=== PATIENT | male | born 1975 | race Caucasian/White ===

== ENCOUNTER → 2018-05-10 08:23 | Outpatient (CLI) | payer OTHER, SELFPAY ==
[2018-05-10 10:26] LABS: ALB/GLOB Ratio 1.3 RATIO (0.9-2.4); AST(SGOT) 23 U/L (15-37); Alanine Aminotransfer ALT/SGPT 39 U/L (16-61); Alkaline Phosphatase 65 U/L (45-117); Anion Gap 12 (5-15); BUN 19 mg/dL (7-18); BUN/Creat Ratio 15.6 RATIO (10-20); Calcium,Total 9.1 mg/dL (8.5-10.1); Chloride 104 mmol/L (98-107); Cholesterol 127 mg/dL (200); Creatinine, Serum 1.22 mg/dL (0.70-1.30); EST Glomerular Filtration Rate 69 mL/min (>60); Est Glom Filt Rate - Afr Amer 83 mL/min (>60); Globulin 3.1 g/dL (2.2-4.2); Glucose 84 mg/dL (74-106); High Density Lipoprotein 52 mg/dL; Potassium 4.6 mmol/L (3.5-5.1); Protein, Total 7.1 g/dL (6.4-8.2); Sodium Level 145 mmol/L (136-145); Triglycerides 48 mg/dL; Very Low Density Lipoprotein 10 mg/dL (5-40)
== END ==
PROVIDERS: Family Provider Family Medicine; PCP Family Medicine; Visit Provider Family Medicine
DX: Z52.4 Kidney donor (principal); E78.00 Pure hypercholesterolemia, unspecified
CPT/HCPCS: 36415; 80053; 80061

== ENCOUNTER → 2025-07-11 | Outpatient (CLI) | payer OTHER, SELFPAY ==
--- NOTE | 2025-07-11 07:18 | CT_ITS ---
PROCEDURE: LIMITED CHEST CT CARDIAC ONLY 07/11/2025 REASON FOR EXAM: CAD SCREENING Family history coronary artery disease. Elevated cholesterol level. TECHNIQUE: Procedure Code: [id number] Modality: CT Procedure: LIMITED CHEST CT CARDIAC ONLY One or more dose reduction techniques were used (e.g., Automated exposure control, adjustment of the mA and/or kV according to patient size, use of iterative reconstruction technique). RADIATION DOSE SUMMARY: CTDlvol: 12.19 mGy DLP: 195.04 mGycm COMPARISON: None. CT/Limited Chest CT Cardiac Only IMPRESSION: Limited imaging of the lungs demonstrates no acute process. No pleural effusion or pneumothorax is seen in visualized areas. No adenopathy is noted. The visualized upper abdomen demonstrates no significant abnormality. Reading Location: [id number]
--- NOTE | 2025-07-11 07:18 | CT_ITS ---
PROCEDURE: LIMITED CHEST CT CARDIAC ONLY 07/11/2025 REASON FOR EXAM: CAD SCREENING Family history coronary artery disease. Elevated cholesterol level. TECHNIQUE: Procedure Code: [id number] Modality: CT Procedure: LIMITED CHEST CT CARDIAC ONLY One or more dose reduction techniques were used (e.g., Automated exposure control, adjustment of the mA and/or kV according to patient size, use of iterative reconstruction technique). RADIATION DOSE SUMMARY: CTDlvol: 12.19 mGy DLP: 195.04 mGycm COMPARISON: None. CT/Limited Chest CT Cardiac Only IMPRESSION: Limited imaging of the lungs demonstrates no acute process. No pleural effusion or pneumothorax is seen in visualized areas. No adenopathy is noted. The visualized upper abdomen demonstrates no significant abnormality. Reading Location: [id number]
--- OUTSIDE RECORDS SUMMARY | 2025-07-11 07:29 | XMS RPT_ITS | CCD ---
Author Organization [facility] Inform ion Partnership [facility] Care Team Providers Care Snap Shearer Name Role Phone BREANNA RETREAD BUILDER - [employer] GRAZIER, GAB Mejia Primary Care Phys ician BREANNA RETREAD BUILDER [employer], GAB Mejia Attending U navailable BREANNA RET[employer] BUILDER [employer]IER, GAB Mejia Primary Care U navailable BREANNA [employer]DER [employer], GAB Mejia Attending U navailable BREANNA RETREAD BUILDER - [employer]IER, GAB Mejia Primary Care U navailable BREANNA RETREAD BUILDER - [employer], GAB Mejia Attending U navailable BREANNA RETREAD BUILDER - [employer]IER, GAB Mejia Primary Care U navailable BREANNA RETREAD BUILDER - [employer], GAB Mejia Primary Care U navailable BREANNA RETREAD BUILDER - [employer], GAB Mejia Attending U navailable [place] PROFESSOR OF PSYCHOLOGY, Gab Florence Referring Unav ailable Breanna PROFESSOR OF PSYCHOLOGY, Gab Florence Attending Unav ailable Breanna PROFESSOR OF PSYCHOLOGY, Gab Florence Primary Care Unav ailable Medications Current Medications Medication Drug Class(es) Dates Sig (Normalized) Sig (Original) ezetimibe 10 mg / simvastatin 20 mg oral tablet (8 sources) HMG-CoA Reductase Inhibitor, Dietary Cholesterol Absorption Inhibitor Start: 12-13-2024 End: 06-11-2025 take 1 tablet by mouth once daily ezetimibe-simvasta tin 10 mg-20 mg oral tablet Dose = 1 tab(s), Oral, qDay, # 90 tab(s), 1 Refill(s), Pharmacy: [facility], 176, cm, 12/13/24 6:58:00 EDT, Height, kg, 12/13/24 6:58:00 EDT, Dosing Weight Start Date: 12/13/24 Stop Date: 06/11/25 Status: Ordered Medication Dispense Status: Completed Quantity: 90.0 Unit: tab(s) Total Allowed Fills: 2 Fills Dispensed: 0 Start: 05-04-2023 End: 06-12-2024 take 1 tablet by mouth once daily ezetimibe-simvastatin 10 mg-20 mg oral tablet Dose = 1 tab(s), Oral, qDay, # 90 tab(s), 1 Refill(s), Pharmacy: [facility], 176, cm, 12/15/23 7:25:00 EDT, Height, kg, 12/15/23 7:25:00 EDT, Dosing Weight Start Date: 12/15/23 Stop Date: 06/12/24 Status: Ordered Start: 11-21-2021 End: 12-02-2022 take 1 tablet by mouth once daily ezetimibe-simvastatin 10 mg-20 mg oral tablet Dose = 1 tab(s), Oral, qDay, # 90 tab(s), 1 Refill(s), Pharmacy: [facility], 176, cm, 06/05/22 7:57:00 EDT, Height, kg, 06/05/22 7:57:00 EDT, Dosing Weight Start Date: 06/05/22 Stop Date: 12/02/22 Status: Ordered Start: 07-19-2020 take 1 tablet by delonte th once daily ezetimibe-simvastatin 10 mg-20 mg oral tablet See Instructions, TAKE 1 TABLET ONCE DAILY, # 90 tab(s), 3 Refill(s), Pharmacy: [facility], 175, cm, 07/03/20 8:08:00 EDT, Height, kg, 07/03/20 8:08:00 EDT, Dosing Weight Start Date: 07/19/20 Status: Ordered tadalafil 5 mg oral tablet (6 sources) Phosphodiesterase 5 Inhibitor Start: 12-13-2024 End: 06-11-2025 Cialis 5 mg oral tablet Dose : 5 mg = 1 tab(s), Oral, qDay, # 90 tab(s), 1 Refill(s), Pharmacy: [facility], Hypogonadism, male BPH without urinary obstruction, 176, cm, 12/13/24 6:58:00 EDT, Height, kg, 12/13/24 6:58:00 EDT, Dosing Weight Start Date: 12/13/24 Stop Date: 06/11/25 Status: Ordered Medication Dispense Status: Completed Quantity: 90.0 Unit: tab(s) Total Allowed Fills: 2 Fills Dispensed: 0 Indications: Benign prostatic hyperplasia without lower urinary tract symptoms; Testicular hypofunction; Start: 06-18-2023 End: 06-12-2024 Cialis 5 mg oral tablet Dose : 5 mg = 1 tab(s), Oral, qDay, # 90 tab(s), 1 Refill(s), Pharmacy: [facility], Hypogonadism, male BPH without urinary obstruction, 176, cm, 12/15/23 7:25:00 EDT, Height, kg, 12/15/23 7:25:00 EDT, Dosing Weight Start Date: 12/15/23 Stop Date: 06/12/24 Status: Ordered Start: 12-11-2022 End: 06-09-2023 Cialis 5 mg oral tablet Dose : 5 mg = 1 tab(s), Oral, qDay, # 90 tab(s), 1 Refill(s), Pharmacy: [facility], Hypogonadism, male BPH without urinary obstruction, 176, cm, 12/11/22 8:05:00 EDT, Height, kg, 12/11/22 8:05:00 EDT, Dosing Weight Start Date: 12/11/22 Stop Date: 06/09/23 Status: Ordered Start: 11-21-2021 End: 12-02-2022 Cialis 5 mg oral tablet Dose : 5 mg = 1 tab(s), Oral, qDay, # 90 tab(s), 1 Refill(s), Pharmacy: [facility], Hypogonadism, male BPH without urinary obstruction, 176, cm, 06/05/22 7:57:00 EDT, Height, kg, 06/05/22 7:57:00 EDT, Dosing Weight Start Date: 06/05/22 Stop Date: 12/02/22 Status: Ordered Completed/Discontinued Medications Medication Drug Class(es) Dates Sig (Normalized) Sig (Original) testosterone cypionate 100 mg/ml injectable solution (1 source) Androgen Start: 03-21-2025 End: 06-13-2025 inject 0.5 mL by subcutaneous injection every week testosterone cypionate 100 mg/mL intramuscular solution Dose : 50 mg = 0.5 mL, Subcutaneous, qWeek, Fill Date: 03/20/2025, # 10 mL, 2 Refill(s), Pharmacy: [facility], Hypogonadism, male Testosterone deficiency in male, 176, cm, 03/20/25 6:56:00 EDT, Height, 82.8, kg, 03/20/25 6:56:00 EDT, Dosing Weight Start Date: 03/21/25 Stop Date: 06/13/25 Status: Ordered Medication Dispense Status: Completed Quantity: 10.0 Unit: mL Total Allowed Fills: 3 Fills Dispensed: 0 Indications: Testicular hypofunction; Testicular hypofunction; Problems Problem Classification Problem Date Documented Da te Episodic/Chronic Chronic kidney disease (2 sources) Chronic kidney disease stage 3 12-15-2023 Chronic Chronic kidney disease (2 sources) Chronic kidney disease; Translations: [Chronic kidney disease, stage 3 unspecified] Onset: 12-08-2024 Disorders of lipid metabolism (16 sources) Hypercholesterolemi a; Translations: [Pure hypercholesterolemi a, unspecified] Onset: 06-11-2023 06-25-2020 Chronic Hyperplasia of prostate (6 sources) Benign prostatic hypertrophy without outflow obstruction 11-21-2021 Chronic Other aftercare (2 sources) Other fpc (current) drug therapy; Translations: [Other long winder tender (current) drug therapy] Onset: 06-06-2025 Episodic Other endocrine disorders (6 sources) Male hypogonadism 11-21-2021 Chronic Other endocrine disorders (2 sources) Testicular hypofunction; Translations: [Testicular hypofunction] Onset: 06-06-2025 Chronic Other screening for suspected conditions (not mental disorders or infectious disease) (7 sources) Encounter for screening for malignant neoplasm of prostate; Translations: [Encounter for screening for diabetes mellitus] Onset: 12-10-2023 Episodic Residual codes; unclassified (3 sources) Increased body mass index 06-18-2023 Episodic Unclassified (7 sources) Donor of kidney for transplant (person) 07-03-2020 Unclassified (20 sources) Patient encounter status 07-03-2020 Unclassified (4 sources) Non-smoker 12-11-2022 Results Test Name Value Interpretation Reference Range Facility TFTESTon 06-10-2025 Free Testost Direct 3.1 pg/mL Low 7.2-24.0 [facility] Comment on above: Result Comment: Perf ormed At: [facility] [address] [id number] Brian Omalley MD Ph:[phone] Performed At: [facility] [place] [address] [place], [place] [id number] Jagdish Zabala PhD Ph:[phone] Performed By: #### A 1C, ADIFF, GFR, LIPID, [id number], ANEU, [id number], CBC, 166136, CMP, TSH #### [address] [address] #### LH, FSH, PROL, E2 #### [facility] [address] [place] [address] Testosterone Lvl 285 ng/dL Normal 264-916 [facility] Comment on above: Result Comment: Adul t male reference interval is based on a population of healthy nonobese males (BMI <30) between 19 and 39 years old. johnathon Man.al. JCEM 2017,102;6391-4292. PMID: [id number]. Performed By: #### A 1C, ADIFF, GFR, LIPID, [id number], ANEU, [id number], CBC, 299430, CMP, TSH #### [address] [address] #### LH, FSH, PROL, E2 #### [address] [address] PSAFon 06-07-2025 % Free PSA 36.8 % Normal [facility] Comment on above: Result Comment: The table below lists the probability of prostate cancer for men with non-suspicious NADER results and total PSA between 4 and 10 ng/mL, by patient age (Ana et al, ELMA 1998, 279:1542). % Free PSA 50-64 yr 65-75 yr 0.00-10.00% 56% 55% 10.01-15.00% 24% 35% 15.01-20.00% 17% 23% 20.01-25.00% 10% 20% >25.00% 5% 9% Please note: Ana et al did not make specific recommendations regarding the use of percent free PSA for any other population of men. Performed At: [address] [id number] Jagdish Zabala PhD Ph:[phone] Performed By: #### A 1C, ADIFF, GFR, LIPID, [id number], ANEU, [id number], CBC, 8190926, CMP, TSH #### [place] [address] #### LH, FSH, PROL, E2 #### [place] [address] PSA Free 1.03 ng/mL Normal N/A [facility] Comment on above: Result Comment: Ayah AHUJA methodology. Performed By: #### A 1C, ADIFF, GFR, LIPID, [id number], ANEU, [id number], CBC, 8190926, CMP, TSH #### [place] [address] #### LH, FSH, PROL, E2 #### [place] [address] [id number] 06-07-2025 Sex Horm Bind Glob 39.7 nmol/L Normal 19.3-76.4 [facility] Comment on above: Result Comment: Perf ormed At: [address] [id number] Jagdish Zabala PhD Ph:[phone] Performed By: #### A 1C, ADIFF, GFR, LIPID, [id number], ANEU, 488954, CBC, 8190926, CMP, TSH #### [place] [address] #### LH, FSH, PROL, E2 #### [place] [address] Sex Horm Bind Glob 39.5 nmol/L Normal 19.3-76.4 [facility] Comment on above: Result Comment: Perf ormed At: [address] [id number] Jagdish Zabala PhD Ph:[phone] Performed By: #### A 1C, ADIFF, GFR, LIPID, [id number], ANEU, 768559, CBC, 8190926, CMP, TSH #### [address] [address] #### LH, FSH, PROL, E2 #### [address] [address] .Auto Diffon 06-06-2025 Basophil, Absolute 0.0 10 3/mcL Normal 0.0-0.3 [facility] Comment on above: Performed By: #### A 1C, ADIFF, GFR, LIPID, [id number], ANEU, [id number], CBC, 8190926, CMP, TSH #### [place] [address] #### LH, FSH, PROL, E2 #### [address] [address] Basophils/100 WBC (Bld) 0.4 % Normal 0.0-2.5 [facility] Comment on above: Performed By: #### A 1C, ADIFF, GFR, LIPID, [id number], ANEU, 557852, CBC, 8190926, CMP, TSH #### [address] [address] #### LH, FSH, PROL, E2 #### [address] [address] Eosinophil, Absolute 0.1 10 3/mcL Normal 0.0-0.7 [facility] Comment on above: Performed By: #### A 1C, ADIFF, GFR, LIPID, [id number], ANEU, 299468, CBC, 244610, CMP, TSH #### [address] [address] #### LH, FSH, PROL, E2 #### [address] [address] Eosinophils/100 WBC (Bld) 1.9 % Normal 0.0-6.0 [facility] Comment on above: Performed By: #### A 1C, ADIFF, GFR, LIPID, [id number], ANEU, 929565, CBC, 8190926, CMP, TSH #### [address] [address] #### LH, FSH, PROL, E2 #### [address] [address] Lymphocyte, Absolute 1.1 10 3/mcL Normal 0.9-4.3 [facility] Comment on above: Performed By: #### A 1C, ADIFF, GFR, LIPID, [id number], ANEU, 803768, CBC, 8190926, CMP, TSH #### [address] [address] #### LH, FSH, PROL, E2 #### [address] [address] Lymphocytes/100 WBC (Bld) 23.6 % Normal 20.0-40.0 [facility] Comment on above: Performed By: #### A 1C, ADIFF, GFR, LIPID, [id number], ANEU, 266928, CBC, 8190926, CMP, TSH #### [place] [address] #### LH, FSH, PROL, E2 #### [address] [address] Monocyte, Absolute 0.6 10 3/mcL Normal 0.1-1.4 [facility] Comment on above: Performed By: #### A 1C, ADIFF, GFR, LIPID, [id number], ANEU, 465600, CBC, 8190926, CMP, TSH #### [place] [address] #### LH, FSH, PROL, E2 #### [address] [address] Monocytes/100 WBC (Bld) 12.4 % Normal 2.0-13.0 [facility] Comment on above: Performed By: #### A 1C, ADIFF, GFR, LIPID, [id number], ANEU, 784526, CBC, 8190926, CMP, TSH #### [place] [address] #### LH, FSH, PROL, E2 #### [address] [address] Neutrophils/100 WBC (Bld) 61.7 % Normal 50.0-75.0 [facility] Comment on above: Performed By: #### A 1C, ADIFF, GFR, LIPID, [id number], ANEU, 300229, CBC, 422466, CMP, TSH #### [address] [address] #### LH, FSH, PROL, E2 #### [address] [address] .GFRon 06-06-2025 Estimated Glomerular Filtration Rate 82 ml/min/1.73sqm Normal [facility] Comment on above: Result Comment: Stages of Chronic Kidney Disease (CKD) Stage Description eGFR(ml/min/1.73 sq.m.) CKD 1 Normal kidney function or >=90 normal kindney function with possible kidney damage (ex. Proteinuria) CKD 2 Kidney damage with mild loss 60-89 of kidney function CKD 3a Mild to moderate loss of kidney 45-59 function CKD 3b Moderate to severe loss of 30-44 of kindey function CKD 4 Severe loss of kidney function 15-29 CKD 5 Kidney failure <15 Note: (go live 2024) the eGFR calculation was updated to the 2020 CKD-EPI creatinine equation without a race factor to calculate the eGFR results. Performed By: #### A 1C, ADIFF, GFR, LIPID, [id number], ANEU, 229188, CBC, 8190926, CMP, TSH #### [address] [address] #### LH, FSH, PROL, E2 #### [address] [address] .NEUABSon 06-06-2025 Neutrophil, Absolute 3.0 10 3/mcL Normal 2.3-8.1 [facility] Comment on above: Performed By: #### A 1C, ADIFF, GFR, LIPID, [id number], ANEU, 634570, CBC, 191870, CMP, TSH #### [address] [address] #### LH, FSH, PROL, E2 #### [address] [address] A1Con 06-06-2025 Glucose [Mass/Vol] 111 mg/dL Normal [facility] Comment on above: Result Comment: Alexandra mated Average Glucose calculated by equation ((28.7xA1C)-46.7) Estimated average glucose (eAG) is a calculated value from Hemoglobin A1C and is career services representative of the average blood glucose level in the last 2-3 month period. Normal range: less than 114 mg/dL Performed By: #### A 1C, ADIFF, GFR, LIPID, [id number], ANEU, 858967, CBC, 763920, CMP, TSH #### [place] [address] #### LH, FSH, PROL, E2 #### [place] [address] HbA1c (Bld) [Mass fraction] 5.5 % Normal 4.3-6.4 [facility] Comment on above: Performed By: #### A 1C, ADIFF, GFR, LIPID, [id number], ANEU, 461050, CBC, 944114, CMP, TSH #### [place] [address] #### LH, FSH, PROL, E2 #### [place] [id number] CBCon 06-06-2025 Erythrocyte distribution width (RBC) [Ratio] 13.0 % Normal 11.5-15.5 [facility] Comment on above: Performed By: #### A 1C, ADIFF, GFR, LIPID, [id number], ANEU, 395376, CBC, 332670, CMP, TSH #### [address] [address] #### LH, FSH, PROL, E2 #### [place] [address] Hematocrit (Bld) [Volume fraction] 46.7 % Normal 40.0-52.0 [facility] Comment on above: Performed By: #### A 1C, ADIFF, GFR, LIPID, [id number], ANEU, 711141, CBC, 8190926, CMP, TSH #### [place] [address] #### LH, FSH, PROL, E2 #### [place] [address] Hgb 16.1 G/dL Normal 13.0-17.5 [facility] Comment on above: Performed By: #### A 1C, ADIFF, GFR, LIPID, [id number], ANEU, 814550, CBC, 8190926, CMP, TSH #### [place] [address] #### LH, FSH, PROL, E2 #### [place] [address] MCH (RBC) [Entitic mass] 29.7 pg Normal 27.0-33.0 [facility] Comment on above: Performed By: #### A 1C, ADIFF, GFR, LIPID, [id number], ANEU, 615876, CBC, 8190926, CMP, TSH #### [place] [address] #### LH, FSH, PROL, E2 #### [place] [address] MCHC 34.4 G/dL Normal 32.0-36.0 [facility] Comment on above: Performed By: #### A 1C, ADIFF, GFR, LIPID, [id number], ANEU, 137642, CBC, 8190926, CMP, TSH #### [place] [address] #### LH, FSH, PROL, E2 #### [place] [address] MCV (RBC) [Entitic vol] 86.3 fL Normal 81.0-100.0 [facility] Comment on above: Performed By: #### A 1C, ADIFF, GFR, LIPID, [id number], ANEU, 203637, CBC, 8190926, CMP, TSH #### [place] [address] #### LH, FSH, PROL, E2 #### [address] [address] Platelet 158 10 3/mcL Normal 150-450 [facility] Comment on above: Performed By: #### A 1C, ADIFF, GFR, LIPID, [id number], ANEU, 334670, CBC, 8190926, CMP, TSH #### [address] [address] #### LH, FSH, PROL, E2 #### [place] [address] Platelet mean volume (Bld) [Entitic vol] 9.6 fL Normal 6.4-10.5 [facility] Comment on above: Performed By: #### A 1C, ADIFF, GFR, LIPID, [id number], ANEU, 305322, CBC, 8190926, CMP, TSH #### [address] [address] #### LH, FSH, PROL, E2 #### [place] [address] RBC 5.42 10 6/mcL Normal 4.50-6.00 [facility] Comment on above: Performed By: #### A 1C, ADIFF, GFR, LIPID, [id number], ANEU, 371379, CBC, 8190926, CMP, TSH #### [address] [address] #### LH, FSH, PROL, E2 #### [place] [address] WBC 4.8 10 3/mcL Normal 4.5-10.8 [facility] Comment on above: Performed By: #### A 1C, ADIFF, GFR, LIPID, [id number], ANEU, 266190, CBC, 8190926, CMP, TSH #### [address] [address] #### LH, FSH, PROL, E2 #### [place] [address] CMPon 06-06-2025 Albumin Level 4.2 G/dL Normal 3.5-5.0 [facility] Comment on above: Performed By: #### A 1C, ADIFF, GFR, LIPID, [id number], ANEU, 891446, CBC, 904544, CMP, TSH #### [address] [address] #### LH, FSH, PROL, E2 #### [address] [address] Albumin/Globulin [Mass ratio] 1.4 {ratio} Normal 1.1-2.5 [facility] Comment on above: Performed By: #### A 1C, ADIFF, GFR, LIPID, [id number], ANEU, 316545, CBC, 255020, CMP, TSH #### [address] [address] #### LH, FSH, PROL, E2 #### [address] [address] ALP [Catalytic activity/Vol] 65 U/L Normal 40-135 [facility] Comment on above: Performed By: #### A 1C, ADIFF, GFR, LIPID, [id number], ANEU, 026832, CBC, 389293, CMP, TSH #### [address] [address] #### LH, FSH, PROL, E2 #### [address] [address] ALT [Catalytic activity/Vol] 32 U/L Normal 16-63 [facility] Comment on above: Performed By: #### A 1C, ADIFF, GFR, LIPID, [id number], ANEU, 303057, CBC, 075125, CMP, TSH #### [address] [address] #### LH, FSH, PROL, E2 #### [address] [address] AST [Catalytic activity/Vol] 23 U/L Normal 10-40 [facility] Comment on above: Performed By: #### A 1C, ADIFF, GFR, LIPID, [id number], ANEU, 865100, CBC, 478045, CMP, TSH #### [place] [address] #### LH, FSH, PROL, E2 #### [address] [address] Bili Total 0.9 mg/dL Normal 0.2-1.0 [facility] Comment on above: Result Comment: Use of this assay is not recommended for patients undergoing treatment with eltrombopag due to the potential for falsely elevated results. Performed By: #### A 1C, ADIFF, GFR, LIPID, [id number], ANEU, 154312, CBC, 296110, CMP, TSH #### [place] [address] #### LH, FSH, PROL, E2 #### [place] [address] BUN/Creatinine Ratio 17 ratio Normal 7-27 [facility] Comment on above: Performed By: #### A 1C, ADIFF, GFR, LIPID, [id number], ANEU, 532533, CBC, 8190926, CMP, TSH #### [place] [address] #### LH, FSH, PROL, E2 #### [address] [address] Calcium [Mass/Vol] 9.5 mg/dL Normal 8.4-10.2 [facility] Comment on above: Performed By: #### A 1C, ADIFF, GFR, LIPID, [id number], ANEU, 671008, CBC, 8190926, CMP, TSH #### [place] [address] #### LH, FSH, PROL, E2 #### [address] [address] Chloride [Moles/Vol] 103 mmol/L Normal 98-107 [facility] Comment on above: Performed By: #### A 1C, ADIFF, GFR, LIPID, [id number], ANEU, 184201, CBC, 738105, CMP, TSH #### [place] [address] #### LH, FSH, PROL, E2 #### [address] [address] CO2 [Moles/Vol] 29 mmol/L Normal 22-29 [facility] Comment on above: Performed By: #### A 1C, ADIFF, GFR, LIPID, [id number], ANEU, 342451, CBC, 298499, CMP, TSH #### [address] [address] #### LH, FSH, PROL, E2 #### [address] [address] Creatinine [Mass/Vol] 1.10 mg/dL Normal 0.67-1.17 [facility] Comment on above: Performed By: #### A 1C, ADIFF, GFR, LIPID, [id number], ANEU, 502727, CBC, 8190926, CMP, TSH #### [address] [address] #### LH, FSH, PROL, E2 #### [address] [address] Electrolyte Balance 8.0 mEq/L Normal 4.0-15.0 [facility] Comment on above: Performed By: #### A 1C, ADIFF, GFR, LIPID, [id number], ANEU, 869076, CBC, 8190926, CMP, TSH #### [address] [address] #### LH, FSH, PROL, E2 #### [address] [address] Globulin 3.1 G/dL Normal 2.7-4.4 [facility] Comment on above: Performed By: #### A 1C, ADIFF, GFR, LIPID, [id number], ANEU, 825903, CBC, 8190926, CMP, TSH #### [address] [address] #### LH, FSH, PROL, E2 #### [address] [address] Glucose [Mass/Vol] 86 mg/dL Normal 70-105 [facility] Comment on above: Performed By: #### A 1C, ADIFF, GFR, LIPID, [id number], ANEU, 469964, CBC, 610697, CMP, TSH #### [address] [address] #### LH, FSH, PROL, E2 #### [address] [address] Potassium [Moles/Vol] 4.2 mmol/L Normal 3.5-5.1 [facility] Comment on above: Performed By: #### A 1C, ADIFF, GFR, LIPID, [id number], ANEU, 680325, CBC, 588191, CMP, TSH #### [address] [address] #### LH, FSH, PROL, E2 #### [address] [address] Sodium [Moles/Vol] 140 mmol/L Normal 136-145 [facility] Comment on above: Performed By: #### A 1C, ADIFF, GFR, LIPID, [id number], ANEU, 739436, CBC, 186876, CMP, TSH #### [address] [address] #### LH, FSH, PROL, E2 #### [address] [address] Total Protein 7.3 G/dL Normal 6.4-8.2 [facility] Comment on above: Performed By: #### A 1C, ADIFF, GFR, LIPID, [id number], ANEU, 027266, CBC, 515805, CMP, TSH #### [address] [address] #### LH, FSH, PROL, E2 #### [address] [address] Urea nitrogen [Mass/Vol] 19 mg/dL High 7-18 [facility] Comment on above: Performed By: #### A 1C, ADIFF, GFR, LIPID, [id number], ANEU, 992691, CBC, 132389, CMP, TSH #### [address] [address] #### LH, FSH, PROL, E2 #### [place] [id number] E2on 06-06-2025 Estradiol Level 23.08 pg/mL Normal 0.00-39.80 [facility] Comment on above: Result Comment: Adult Female E2 Reference Ranges: Follicular phase 19.5 - 144.2 pg/mL Midcycle 63.9 - 356.7 pg/mL Luteal phase 55.8 - 214.2 pg/mL Post menopausal 0 - 33.2 pg/mL Performed By: #### A 1C, ADIFF, GFR, LIPID, [id number], ANEU, 758758, CBC, 257372, CMP, TSH #### [place] [address] #### LH, FSH, PROL, E2 #### [place] [address] FSHon 06-06-2025 FSH 0.4 mIU/mL Low 1.4-18.1 [facility] Comment on above: Result Comment: Adul t Female FSH Reference Ranges (08/14/99): Follicular phase 2.5 - 10.2 mIU/mL Midcycle phase 3.4 - 33.4 mIU/mL Luteal phase 1.5 - 9.1 mIU/mL Post menopausal 23.0 -116.3 mIU/mL Adult Male: 1.4 - 18.1 mIU/mL Performed By: #### A 1C, ADIFF, GFR, LIPID, [id number], ANEU, 747175, CBC, 558939, CMP, TSH #### [place] [id number] #### LH, FSH, PROL, E2 #### [place] [id number] LABORATORYOrdered By: LABCOR P CONTRIBUTOR_SYSTEM on 06-06-2025 % Free PSA (LC) 36.8 % Invalid Interpretation Code AO Sendouts SS Comment on above: Result Comment: The table below lists the probability of prostate cancer for men with non-suspicious NADER results and total PSA between 4 and 10 ng/mL, by patient age (Ana et al, ELMA 1998, 279:1542). % Free PSA 50-64 yr 65-75 yr 0.00-10.00% 56% 55% 10.01-15.00% 24% 35% 15.01-20.00% 17% 23% 20.01-25.00% 10% 20% >25.00% 5% 9% Please note: Ana et al did not make specific recommendations regarding the use of percent free PSA for any other population of men. Performed At: [address] [id number] Jagdish Zabala PhD Ph:[phone] Free Testost Direct (LC) 3.1 pg/mL Low 7.2-24.0 AO Sendouts SS Comment on above: Result Comment: Perf ormed At: [address] [id number] Brian Omalley MD Ph:[phone] Performed At: [address] [id number] Jagdish Zabala PhD Ph:[phone] PSA (LC) 2.8 ng/mL Invalid Interpretation Code 0.0-4.0 AO Sendouts SS Comment on above: Result Comment: Roch e ECLIA methodology. According to the [employer], Serum PSA should decrease and remain at undetectable levels after radical prostatectomy. The AUA defines biochemical recurrence as an initial PSA value 0.2 ng/mL or greater followed by a subsequent confirmatory PSA value 0.2 ng/mL or greater. Values obtained with different assay methods or kits cannot be used interchangeably. Results cannot be interpreted as absolute evidence of the presence or absence of malignant disease. PSA Free (LC) 1.03 ng/mL Invalid Interpretation Code N/A AO Sendouts SS Comment on above: Result Comment: Roch e ECLIA methodology. Sex Horm Bind Glob (LC) 39.7 nmol/L Invalid Interpretation Code 19.3-76.4 AO Sendouts SS Comment on above: Result Comment: Perf ormed At: [address] [id number] Jagdish Zabala PhD Ph:[phone] Sex Horm Bind Glob (LC) 39.5 nmol/L Invalid Interpretation Code 19.3-76.4 AO Sendouts SS Comment on above: Result Comment: Perf ormed At: [facility] [place] [address], [place] [id number] Jagdish Zabala PhD Ph:[phone] Testosterone Lvl (LC) 285 ng/dL Invalid Interpretation Code 264-021 AO Sendouts SS Comment on above: Result Comment: Adul t male reference interval is based on a population of healthy nonobese males (BMI <30) between 19 and 39 years old. Donovan et.al. JCEM 2017,102;3470-5476. PMID: [id number]. LABORATORYOrdered By: SYSTEM SYSTEM on 06-06-2025 Albumin BCP dye [Mass/Vol] 4.2 G/dL Normal 3.5 - 5.0 G/dL AO ADM SS Albumin/Globulin [Mass ratio] 1.4 {ratio} Normal 1.1 - 2.5 ratio AO ADM SS ALP [Catalytic activity/Vol] 65 U/L Normal 40 - 135 U/L AO ADM SS ALT With P-5'-P [Catalytic activity/Vol] 32 U/L Normal 16 - 63 U/L AO ADM SS AST With P-5'-P [Catalytic activity/Vol] 23 U/L Normal 10 - 40 U/L AO ADM SS Basophils (Bld) [#/Vol] 0.0 103/mcL Normal 0.0 - 0.3 10^3/mcL AO Workflow SS Basophils/100 WBC (Bld) 0.4 % Normal 0.0 - 2.5 % AO Workflow SS Bilirubin [Mass/Vol] 0.9 mg/dL Normal 0.2 - 1 .0 mg/dL AO ADM SS Comment on above: Interpretive Data: U se of this assay is not recommended for patients undergoing treatment with eltrombopag due to the potential for falsely elevated results. Calcium [Mass/Vol] 9.5 mg/dL Normal 8.4 - 10. 2 mg/dL AO ADM SS Chloride [Moles/Vol] 103 mmol/L Normal 98 - 10 7 mmol/L AO ADM SS CO2 [Moles/Vol] 29 mmol/L Normal 22 - 29 mmol/L AO ADM SS Creatinine [Mass/Vol] 1.10 mg/dL Normal 0.67 - 1.17 mg/dL AO ADM SS E2 [Mass/Vol] 23.08 pg/mL Normal 0.00 - 39.80 pg/mL AH ADM SS Comment on above: Interpretive Data: Adult Female E2 Reference Ranges: Follicular phase 19.5 - 144.2 pg/mL Midcycle 63.9 - 356.7 pg/mL Luteal phase 55.8 - 214.2 pg/mL Post menopausal 0 - 33.2 pg/mL Electrolyte Balance 8.0 mEq/L Normal 4.0 - 15 .0 mEq/L AO ADM SS Eosinophil, Absolute 0.1 103/mcL Normal 0.0 - 0 .7 10^3/mcL AO Workflow SS Eosinophils/100 WBC (Bld) 1.9 % Normal 0.0 - 6.0 % AO Workflow SS Erythrocyte distribution width (RBC) [Ratio] 13.0 % Normal 11.5 - 15.5 % AO Workflow SS Estimated Glomerular Filtration Rate 82 ml/min/1.73sqm Invalid Interpretation Code AO Chemistry S Comment on above: Interpretive Data: Stages of Chronic Kidney Disease (CKD) Stage Description eGFR(ml/min/1.73 sq.m.) CKD 1 Normal kidney function or >=90 normal kindney function with possible kidney damage (ex. Proteinuria) CKD 2 Kidney damage with mild loss 60-89 of kidney function CKD 3a Mild to moderate loss of kidney 45-59 function CKD 3b Moderate to severe loss of 30-44 of kindey function CKD 4 Severe loss of kidney function 15-29 CKD 5 Kidney failure <15 Note: (go live 2024) the eGFR calculation was updated to the 2020 CKD-EPI creatinine equation without a race factor to calculate the eGFR results. Follitropin Qn 0.4 m[IU]/mL Low 1.4 - 18.1 mIU/mL ADM SS Comment on above: Interpretive Data: A dult Female FSH Reference Ranges (08/14/99): Follicular phase 2.5 - 10.2 mIU/mL Midcycle phase 3.4 - 33.4 mIU/mL Luteal phase 1.5 - 9.1 mIU/mL Post menopausal 23.0 -116.3 mIU/mL Adult Male: 1.4 - 18.1 mIU/mL Globulin 3.1 G/dL Normal 2.7 - 4.4 G/dL AO ADM SS Glucose [Mass/Vol] 111 mg/dL Invalid Interpretation Code AO Chemistry S Comment on above: Interpretive Data: E stimated average glucose (eAG) is a calculated value from Hemoglobin A1C and is career services representative of the average blood glucose level in the last 2-3 month period. Normal range: less than 114 mg/dL Glucose [Mass/Vol] 86 mg/dL Normal 70 - 105 mg/dL AO ADM SS HbA1c (Bld) [Mass fraction] 5.5 % Normal 4.3 - 6.4 % AO ADM SS Hematocrit (Bld) [Volume fraction] 46.7 % Normal 40.0 - 52.0 % AO Workflow SS Hemoglobin (Bld) [Mass/Vol] 16.1 G/dL Normal 13.0 - 17.5 G/dL AO Workflow SS Lutropin Qn mIU/mL Low 1.5 - 9.3 mIU/mL AH ADM SS Comment on above: Interpretive Data: * *Note - New Reference Range in effect 20Adult Female LH Reference Ranges: Follicular phase 1.9 - 12.5 mIU/mL Midcycle phase 8.7 - 76.3 mIU/mL Luteal phase 0.5 - 16.9 mIU/mL Post menopausal 5.0 - 55.2 mIU/mL Lymphocytes (Bld) [#/Vol] 1.1 103/mcL Normal 0.9 - 4.3 10^3/mcL AO Workflow SS Lymphocytes/100 WBC (Bld) 23.6 % Normal 20.0 - 40.0 % AO Workflow SS MCH (RBC) [Entitic mass] 29.7 pg Normal 27.0 - 33.0 pg AO Workflow SS MCHC 34.4 G/dL Normal 32.0 - 36.0 G/dL AO Workflow SS MCV (RBC) [Entitic vol] 86.3 fL Normal 81.0 - 100.0 fL AO Workflow SS Monocytes (Bld) [#/Vol] 0.6 103/mcL Normal 0.1 - 1.4 10^3/mcL AO Workflow SS Monocytes/100 WBC (Bld) 12.4 % Normal 2.0 - 13.0 % AO Workflow SS Neutrophils (Bld) [#/Vol] 3.0 103/mcL Normal 2.3 - 8.1 10^3/mcL AO Workflow SS Neutrophils/100 WBC (Bld) 61.7 % Normal 50.0 - 75.0 % AO Workflow SS Platelet mean volume (Bld) [Entitic vol] 9.6 fL Normal 6.4 - 10.5 fL AO Workflow SS Platelets (Bld) [#/Vol] 158 103/mcL Normal 150 - 450 10^3/mcL AO Workflow SS Potassium [Moles/Vol] 4.2 mmol/L Normal 3.5 - 5.1 mmol/L AO ADM SS Prolactin [Mass/Vol] 4.6 ng/mL Normal 2.0 - 1 8.0 ng/mL AH ADM SS Protein [Mass/Vol] 7.3 G/dL Normal 6.4 - 8.2 G/dL AO ADM SS RBC (Bld) [#/Vol] 5.42 106/mcL Normal 4.50 - 6.0 0 10^6/mcL AO Workflow SS Sodium [Moles/Vol] 140 mmol/L Normal 136 - 145 mmol/L AO ADM SS TSH Qn 1.08 m[IU]/L Normal 0.36 - 3.74 mcIU/mL AO ADM SS Urea nitrogen [Mass/Vol] 19 mg/dL High 7 - 18 mg/dL AO ADM SS Urea nitrogen/Creatinine [Mass ratio] 17 ratio Normal 7 - 27 ratio AO ADM SS WBC (Bld) [#/Vol] 4.8 103/mcL Normal 4.5 - 10.8 10^3/mcL AO Workflow SS LABORATORYOrdered By: Ivett Hamm on 06-06-2025 Cholesterol [Mass/Vol] 210 mg/dL High 0 - 200 mg/dL AO ADM SS Comment on above: Interpretive Data: C holesterol Reference Interval: Less than 200 Desirable 200-239 Borderline high risk 240 and above High risk Cholesterol in HDL [Mass/Vol] 42 mg/dL Normal 40 - 60 mg/dL AO ADM SS Cholesterol in LDL [Mass/Vol] 151 mg/dL High 0 - 130 mg/dL AO ADM SS Triglyceride [Mass/Vol] 85 mg/dL Normal 0 - 150 mg/dL AO ADM SS Comment on above: Interpretive Data: T riglyceride Reference Interval: Less than 150 Normal 150-199 Borderline high risk 200-499 High risk 500 or higher Very high risk LHon 06-06-2025 LH <0.1 Low 1.5-9.3 [facility] Comment on above: Result Comment: No te - New Reference Range in effect 20Adult Female LH Reference Ranges: Follicular phase 1.9 - 12.5 mIU/mL Midcycle phase 8.7 - 76.3 mIU/mL Luteal phase 0.5 - 16.9 mIU/mL Post menopausal 5.0 - 55.2 mIU/mL Performed By: #### A 1C, ADIFF, GFR, LIPID, [id number], ANEU, [id number], CBC, 263778, CMP, TSH #### [address] [address] #### LH, FSH, PROL, E2 #### [address] [address] LIPIDon 06-06-2025 Cholesterol [Mass/Vol] 210 mg/dL High 0-200 [facility] Comment on above: Result Comment: Chol esterol Reference Interval: Less than 200 Desirable 200-239 Borderline high risk 240 and above High risk Performed By: #### A 1C, ADIFF, GFR, LIPID, [id number], ANEU, [id number], CBC, [id number], CMP, TSH #### [place] [address] #### LH, FSH, PROL, E2 #### [address] [address] Cholesterol in HDL [Mass/Vol] 42 mg/dL Normal 40-60 [facility] Comment on above: Performed By: #### A 1C, ADIFF, GFR, LIPID, [id number], ANEU, [id number], CBC, 055777, CMP, TSH #### [address] [address] #### LH, FSH, PROL, E2 #### [address] [address] Cholesterol in LDL [Mass/Vol] 151 mg/dL High 0-130 [facility] Comment on above: Performed By: #### A 1C, ADIFF, GFR, LIPID, [id number], ANEU, 709392, CBC, 415224, CMP, TSH #### [address] [address] #### LH, FSH, PROL, E2 #### [address] [address] Triglyceride [Mass/Vol] 85 mg/dL Normal 0-150 [facility] Comment on above: Result Comment: Trig lyceride Reference Interval: Less than 150 Normal 150-199 Borderline high risk 200-499 High risk 500 or higher Very high risk Performed By: #### A 1C, ADIFF, GFR, LIPID, [id number], ANEU, [id number], CBC, 506720, CMP, TSH #### [address] [address] #### LH, FSH, PROL, E2 #### [address] [address] PROLon 06-06-2025 Prolactin 4.6 ng/mL Normal 2.0-18.0 [facility] Comment on above: Performed By: #### A 1C, ADIFF, GFR, LIPID, [id number], ANEU, [id number], CBC, 260166, CMP, TSH #### [address] [address] #### LH, FSH, PROL, E2 #### [address] [address] TSHon 06-06-2025 TSH Qn 1.08 m[IU]/L Normal 0.36-3.74 [facility] Comment on above: Performed By: #### A 1C, ADIFF, GFR, LIPID, [id number], ANEU, [id number], CBC, 103266, CMP, TSH #### [address] [address] #### LH, FSH, PROL, E2 #### [address] [address] TFTESTon 12-14-2024 Free Testost Direct 6.7 pg/mL Low 7.2-24.0 [facility] Comment on above: Result Comment: Perf ormed At: [facility] [address] [id number] Brian Omalley MD Ph:[phone] Performed At: [facility] [address] [id number] Jagdish Zabala PhD Ph:[phone] Performed By: #### A 1C, ADIFF, GFR, LIPID, [id number], ANEU, [id number], CBC, 8190926, CMP, TSH #### [place] [address] #### LH, FSH, PROL, E2 #### [place] [address] Testosterone Lvl 560 ng/dL Normal 264-916 [facility] Comment on above: Result Comment: Adul t male reference interval is based on a population of healthy nonobese males (BMI <30) between 19 and 39 years old. johnathon Man.al. JCEM 2017,102;8480-9423. PMID: [id number]. Performed By: #### A 1C, ADIFF, GFR, LIPID, [id number], ANEU, [id number], CBC, 8190926, CMP, TSH #### [place] [address] #### LH, FSH, PROL, E2 #### [place] [address] [id number] 12-09-2024 Sex Horm Bind Glob 42.2 nmol/L Normal 19.3-76.4 [facility] Comment on above: Result Comment: Perf ormed At: [facility] [address] [id number] Jagdish Zabala PhD Ph:[phone] Performed By: #### A 1C, ADIFF, GFR, LIPID, [id number], ANEU, [id number], CBC, 8190926, CMP, TSH #### [place] [address] #### LH, FSH, PROL, E2 #### [place] [address] .GFRon 12-08-2024 Estimated Glomerular Filtration Rate 74 ml/min/1.73sqm Normal [facility] Comment on above: Result Comment: Stages of Chronic Kidney Disease (CKD) Stage Description eGFR(ml/min/1.73 sq.m.) CKD 1 Normal kidney function or >=90 normal kindney function with possible kidney damage (ex. Proteinuria) CKD 2 Kidney damage with mild loss 60-89 of kidney function CKD 3a Mild to moderate loss of kidney 45-59 function CKD 3b Moderate to severe loss of 30-44 of kindey function CKD 4 Severe loss of kidney function 15-29 CKD 5 Kidney failure <15 Note: (go live 2024) the eGFR calculation was updated to the 2020 CKD-EPI creatinine equation without a race factor to calculate the eGFR results. Performed By: #### A 1C, ADIFF, GFR, LIPID, [id number], ANEU, [id number], CBC, 8190926, CMP, TSH #### [place] [address] #### LH, FSH, PROL, E2 #### [address] [address] CMPon 12-08-2024 Albumin Level 4.7 G/dL Normal 3.5-5.0 [facility] Comment on above: Performed By: #### A 1C, ADIFF, GFR, LIPID, [id number], ANEU, [id number], CBC, 8190926, CMP, TSH #### [place] [address] #### LH, FSH, PROL, E2 #### [address] [address] Albumin/Globulin [Mass ratio] 1.7 {ratio} Normal 1.1-2.5 [facility] Comment on above: Performed By: #### A 1C, ADIFF, GFR, LIPID, [id number], ANEU, 825300, CBC, 8190926, CMP, TSH #### [place] [address] #### LH, FSH, PROL, E2 #### [address] [address] ALP [Catalytic activity/Vol] 65 U/L Normal 40-135 [facility] Comment on above: Performed By: #### A 1C, ADIFF, GFR, LIPID, [id number], ANEU, 869633, CBC, 8190926, CMP, TSH #### [place] [address] #### LH, FSH, PROL, E2 #### [address] [address] ALT [Catalytic activity/Vol] 42 U/L Normal 16-63 [facility] Comment on above: Performed By: #### A 1C, ADIFF, GFR, LIPID, [id number], ANEU, 003450, CBC, 8190926, CMP, TSH #### [address] [address] #### LH, FSH, PROL, E2 #### [address] [address] AST [Catalytic activity/Vol] 27 U/L Normal 10-40 [facility] Comment on above: Performed By: #### A 1C, ADIFF, GFR, LIPID, [id number], ANEU, 089111, CBC, 8190926, CMP, TSH #### [address] [address] #### LH, FSH, PROL, E2 #### [place] [address] Bili Total 0.8 mg/dL Normal 0.2-1.0 [facility] Comment on above: Result Comment: Use of this assay is not recommended for patients undergoing treatment with eltrombopag due to the potential for falsely elevated results. Performed By: #### A 1C, ADIFF, GFR, LIPID, [id number], ANEU, 818062, CBC, 8190926, CMP, TSH #### [place] [address] #### LH, FSH, PROL, E2 #### [address] [address] BUN/Creatinine Ratio 18 ratio Normal 7-27 [facility] Comment on above: Performed By: #### A 1C, ADIFF, GFR, LIPID, [id number], ANEU, 001117, CBC, 8190926, CMP, TSH #### [address] [address] #### LH, FSH, PROL, E2 #### [place] [address] Calcium [Mass/Vol] 9.9 mg/dL Normal 8.4-10.2 [facility] Comment on above: Performed By: #### A 1C, ADIFF, GFR, LIPID, [id number], ANEU, 296356, CBC, 8190926, CMP, TSH #### [address] [address] #### LH, FSH, PROL, E2 #### [address] [address] Chloride [Moles/Vol] 104 mmol/L Normal 98-107 [facility] Comment on above: Performed By: #### A 1C, ADIFF, GFR, LIPID, [id number], ANEU, 898464, CBC, 8190926, CMP, TSH #### [address] [address] #### LH, FSH, PROL, E2 #### [address] [address] CO2 [Moles/Vol] 29 mmol/L Normal 22-29 [facility] Comment on above: Performed By: #### A 1C, ADIFF, GFR, LIPID, [id number], ANEU, 760969, CBC, 8190926, CMP, TSH #### [address] [address] #### LH, FSH, PROL, E2 #### [address] [address] Creatinine [Mass/Vol] 1.20 mg/dL Normal 0.70-1.30 [facility] Comment on above: Result Comment: Test ing performed on Siemens Dimension EXL analyzer using a modified kinetic Bhargavi technique. Performed By: #### A 1C, ADIFF, GFR, LIPID, [id number], ANEU, 763584, CBC, 273723, CMP, TSH #### [address] [address] #### LH, FSH, PROL, E2 #### [address] [address] Electrolyte Balance 7.0 mEq/L Normal 4.0-15.0 [facility] Comment on above: Performed By: #### A 1C, ADIFF, GFR, LIPID, [id number], ANEU, 275407, CBC, 606008, CMP, TSH #### [address] [address] #### LH, FSH, PROL, E2 #### [address] [address] Globulin 2.8 G/dL Normal 1.5-3.8 [facility] Comment on above: Performed By: #### A 1C, ADIFF, GFR, LIPID, [id number], ANEU, 148856, CBC, 8190926, CMP, TSH #### [place] [address] #### LH, FSH, PROL, E2 #### [address] [address] Glucose [Mass/Vol] 84 mg/dL Normal 70-105 [facility] Comment on above: Performed By: #### A 1C, ADIFF, GFR, LIPID, [id number], ANEU, 460182, CBC, 8190926, CMP, TSH #### [address] [address] #### LH, FSH, PROL, E2 #### [address] [address] Potassium [Moles/Vol] 4.6 mmol/L Normal 3.5-5.1 [facility] Comment on above: Performed By: #### A 1C, ADIFF, GFR, LIPID, [id number], ANEU, 032425, CBC, 8190926, CMP, TSH #### [address] [address] #### LH, FSH, PROL, E2 #### [address] [address] Sodium [Moles/Vol] 140 mmol/L Normal 136-145 [facility] Comment on above: Performed By: #### A 1C, ADIFF, GFR, LIPID, [id number], ANEU, 710622, CBC, 809453, CMP, TSH #### [address] [address] #### LH, FSH, PROL, E2 #### [address] [address] Total Protein 7.5 G/dL Normal 6.4-8.2 [facility] Comment on above: Performed By: #### A 1C, ADIFF, GFR, LIPID, [id number], ANEU, 388224, CBC, 844031, CMP, TSH #### [address] [address] #### LH, FSH, PROL, E2 #### [place] [address] Urea nitrogen [Mass/Vol] 21 mg/dL High 7-18 [facility] Comment on above: Performed By: #### A 1C, ADIFF, GFR, LIPID, [id number], ANEU, 533129, CBC, 217770, CMP, TSH #### [place] [address] #### LH, FSH, PROL, E2 #### [place] [address] LIPIDon 12-08-2024 Cholesterol [Mass/Vol] 172 mg/dL Normal 0-200 [facility] Comment on above: Result Comment: Chol esterol Reference Interval: Less than 200 Desirable 200-239 Borderline high risk 240 and above High risk Performed By: #### A 1C, ADIFF, GFR, LIPID, [id number], ANEU, 771854, CBC, 8190926, CMP, TSH #### [place] [address] #### LH, FSH, PROL, E2 #### [address] [address] Cholesterol in HDL [Mass/Vol] 54 mg/dL Normal 40-60 [facility] Comment on above: Performed By: #### A 1C, ADIFF, GFR, LIPID, [id number], ANEU, 167006, CBC, 513392, CMP, TSH #### [address] [address] #### LH, FSH, PROL, E2 #### [facility] [address] [place], [place] [address] Cholesterol in LDL [Mass/Vol] 105 mg/dL Normal 0-130 [facility] Comment on above: Performed By: #### A 1C, ADIFF, GFR, LIPID, [id number], ANEU, 440436, CBC, 059225, CMP, TSH #### [address] [address] #### LH, FSH, PROL, E2 #### [facility] [address] [place] [address] Triglyceride [Mass/Vol] 67 mg/dL Normal 0-150 [facility] Comment on above: Result Comment: Trig lyceride Reference Interval: Less than 150 Normal 150-199 Borderline high risk 200-499 High risk 500 or higher Very high risk Performed By: #### A 1C, ADIFF, GFR, LIPID, [id number], ANEU, 055635, CBC, 613571, CMP, TSH #### [address] [address] #### LH, FSH, PROL, E2 #### [address] [address] LABORATORYOrdered By: SYSTEM SYSTEM on 06-02-2024 Albumin BCP dye [Mass/Vol] 4.2 G/dL Normal 3.5 - 5.0 G/dL AO ADM SS Albumin/Globulin [Mass ratio] 1.6 {ratio} Normal 1.1 - 2.5 ratio AO ADM SS ALP [Catalytic activity/Vol] 58 U/L Normal 40 - 135 U/L AO ADM SS ALT With P-5'-P [Catalytic activity/Vol] 38 U/L Normal 16 - 63 U/L AO ADM SS AST With P-5'-P [Catalytic activity/Vol] 20 U/L Normal 10 - 40 U/L AO ADM SS Bilirubin [Mass/Vol] 0.6 mg/dL Normal 0.2 - 1 .0 mg/dL AO ADM SS Comment on above: Interpretive Data: U se of this assay is not recommended for patients undergoing treatment with eltrombopag due to the potential for falsely elevated results. Calcium [Mass/Vol] 9.6 mg/dL Normal 8.4 - 10. 2 mg/dL AO ADM SS Chloride [Moles/Vol] 102 mmol/L Normal 98 - 10 7 mmol/L AO ADM SS CO2 [Moles/Vol] 30 mmol/L High 22 - 29 mmol/L AO ADM SS Creatinine [Mass/Vol] 1.05 mg/dL Normal 0.70 - 1.30 mg/dL AO ADM SS Comment on above: Interpretive Data: T esting performed on Siemens Dimension EXL analyzer using a modified kinetic Bhargavi technique. Electrolyte Balance 7.0 mEq/L Normal 4.0 - 15 .0 mEq/L AO ADM SS GFR/1.73 sq M.predicted among blacks MDRD (S/P/Bld) [Vol rate/Area] 91 ml/min/1.73sqm Invalid Interpretation Code AO Chemistry S Comment on above: Interpretive Data: GFR Population mean for , Non- Americans Ages 20-29 = 116 mL/min/1.73 sq.m. Ages 30-39 = 107 mL/min/1.73 sq.m. Ages 40-49 = 99 mL/min/1.73 sq.m. Ages 50-59 = 93 mL/min/1.73 sq.m. Ages 60-69 = 85 mL/min/1.73 sq.m. Ages 70+ = 75 mL/min/1.73 sq.m. Chronic Kidney Disease: Less than 60 mL/min/1.73 square meters End Stage Renal Disease: Less than 15 mL/min/1.73 square meters GFR/1.73 sq M.predicted among non-blacks MDRD (S/P/Bld) [Vol rate/Area] 75 ml/min/1.73sqm Invalid Interpretation Code AO Chemistry S Comment on above: Interpretive Data: GFR Population mean for , Non- Americans Ages 20-29 = 116 mL/min/1.73 sq.m. Ages 30-39 = 107 mL/min/1.73 sq.m. Ages 40-49 = 99 mL/min/1.73 sq.m. Ages 50-59 = 93 mL/min/1.73 sq.m. Ages 60-69 = 85 mL/min/1.73 sq.m. Ages 70+ = 75 mL/min/1.73 sq.m. Chronic Kidney Disease: Less than 60 mL/min/1.73 square meters End Stage Renal Disease: Less than 15 mL/min/1.73 square meters Globulin 2.6 G/dL Invalid Interpretation Code AO ADM SS Glucose [Mass/Vol] 87 mg/dL Normal 70 - 105 mg/dL AO ADM SS Potassium [Moles/Vol] 4.6 mmol/L Normal 3.5 - 5.1 mmol/L AO ADM SS Protein [Mass/Vol] 6.8 G/dL Normal 6.4 - 8.2 G/dL AO ADM SS Sodium [Moles/Vol] 139 mmol/L Normal 136 - 145 mmol/L AO ADM SS Urea nitrogen [Mass/Vol] 20 mg/dL High 7 - 18 mg/dL AO ADM SS Urea nitrogen/Creatinine [Mass ratio] 19 ratio Normal 7 - 27 ratio AO ADM SS LABORATORYOrdered By: Kahlil Miguel on 06-02-2024 Cholesterol [Mass/Vol] 162 mg/dL Normal 0 - 200 mg/dL AO ADM SS Comment on above: Interpretive Data: C holesterol Reference Interval: Less than 200 Desirable 200-239 Borderline high risk 240 and above High risk Cholesterol in HDL [Mass/Vol] 51 mg/dL Normal 40 - 60 mg/dL AO ADM SS Cholesterol in LDL [Mass/Vol] 101 mg/dL Normal 0 - 130 mg/dL AO ADM SS Triglyceride [Mass/Vol] 48 mg/dL Normal 0 - 150 mg/dL AO ADM SS Comment on above: Interpretive Data: T riglyceride Reference Interval: Less than 150 Normal 150-199 Borderline high risk 200-499 High risk 500 or higher Very high risk LABORATORYOrdered By: LABCOR P CONTRIBUTOR_SYSTEM on 06-02-2024 Sex Horm Bind Glob (LC) 43.1 nmol/L Invalid Interpretation Code 16.5-55.9 [facility] Comment on above: Result Comment: Perf ormed At: [facility] [address] [id number] Jagdish Zabala PhD Ph:[phone] .GFRon 12-10-2023 GFR Non- 58 ml/min/1.73sqm Normal [facility] ([place]) Comment on above: Result Comment: GFR Population mean for , Non- Americans Ages 20-29 = 116 mL/min/1.73 sq.m. Ages 30-39 = 107 mL/min/1.73 sq.m. Ages 40-49 = 99 mL/min/1.73 sq.m. Ages 50-59 = 93 mL/min/1.73 sq.m. Ages 60-69 = 85 mL/min/1.73 sq.m. Ages 70+ = 75 mL/min/1.73 sq.m. Chronic Kidney Disease: Less than 60 mL/min/1.73 square meters End Stage Renal Disease: Less than 15 mL/min/1.73 square meters Performed By: #### L IPID, GFR, CMP, PSA #### [address] [address] GFR 70 ml/min/1.73sqm Normal [facility] ([place]) Comment on above: Result Comment: GFR Population mean for , Non- Americans Ages 20-29 = 116 mL/min/1.73 sq.m. Ages 30-39 = 107 mL/min/1.73 sq.m. Ages 40-49 = 99 mL/min/1.73 sq.m. Ages 50-59 = 93 mL/min/1.73 sq.m. Ages 60-69 = 85 mL/min/1.73 sq.m. Ages 70+ = 75 mL/min/1.73 sq.m. Chronic Kidney Disease: Less than 60 mL/min/1.73 square meters End Stage Renal Disease: Less than 15 mL/min/1.73 square meters Performed By: #### L IPID, GFR, CMP, PSA #### [address] [address] CMPon 12-10-2023 Albumin Level 4.4 G/dL Normal 3.5-5.0 [facility] ([place]) Comment on above: Performed By: #### L IPID, GFR, CMP, PSA #### [address] [address] Albumin/Globulin [Mass ratio] 1.6 {ratio} Normal 1.1-2.5 [facility] ([place]) Comment on above: Performed By: #### L IPID, GFR, CMP, PSA #### [place] [id number] [place], [place] [address] ALP [Catalytic activity/Vol] 61 U/L Normal 40-135 [facility] ([place]) Comment on above: Performed By: #### L IPID, GFR, CMP, PSA #### [address] [address] ALT [Catalytic activity/Vol] 39 U/L Normal 16-63 [facility] ([place]) Comment on above: Performed By: #### L IPID, GFR, CMP, PSA #### [address] [address] AST [Catalytic activity/Vol] 22 U/L Normal 10-40 [facility] ([place]) Comment on above: Performed By: #### L IPID, GFR, CMP, PSA #### [address] [address] Bili Total 0.8 mg/dL Normal 0.2-1.0 [facility] ([place]) Comment on above: Result Comment: Use of this assay is not recommended for patients undergoing treatment with eltrombopag due to the potential for falsely elevated results. Performed By: #### L IPID, GFR, CMP, PSA #### [address] [address] BUN/Creatinine Ratio 17 ratio Normal 7-27 [facility] ([place]) Comment on above: Performed By: #### L IPID, GFR, CMP, PSA #### [address] [address] Calcium [Mass/Vol] 9.6 mg/dL Normal 8.4-10.2 [facility] ([place]) Comment on above: Performed By: #### L IPID, GFR, CMP, PSA #### [address] [address] Chloride [Moles/Vol] 104 mmol/L Normal 98-107 [facility] ([place]) Comment on above: Performed By: #### L IPID, GFR, CMP, PSA #### [address] [address] CO2 [Moles/Vol] 28 mmol/L Normal 22-29 [facility] ([place]) Comment on above: Performed By: #### L IPID, GFR, CMP, PSA #### [address] [address] Creatinine [Mass/Vol] 1.32 mg/dL High 0.70-1.30 [facility] ([place]) Comment on above: Performed By: #### L IPID, GFR, CMP, PSA #### [address] [address] Electrolyte Balance 7.0 mEq/L Normal 4.0-15.0 [facility] ([place]) Comment on above: Performed By: #### L IPID, GFR, CMP, PSA #### [address] [address] Globulin 2.8 G/dL Normal [facility] ([place]) Comment on above: Performed By: #### L IPID, GFR, CMP, PSA #### [address] [address] Glucose [Mass/Vol] 89 mg/dL Normal 70-105 [facility] ([place]) Comment on above: Performed By: #### L IPID, GFR, CMP, PSA #### [address] [address] Potassium [Moles/Vol] 4.3 mmol/L Normal 3.5-5.1 [facility] ([place]) Comment on above: Performed By: #### L IPID, GFR, CMP, PSA #### [address] [address] Sodium [Moles/Vol] 139 mmol/L Normal 136-145 Formerly [facility] ([place]) Comment on above: Performed By: #### L IPID, GFR, CMP, PSA #### [address] [address] Total Protein 7.2 G/dL Normal 6.4-8.2 Formerly [facility] ([place]) Comment on above: Performed By: #### L IPID, GFR, CMP, PSA #### [address] [address] Urea nitrogen [Mass/Vol] 22 mg/dL High 7-18 [facility] ([place]) Comment on above: Performed By: #### L IPID, GFR, CMP, PSA #### [id number] [place], [place] [address] LABORATORYOrdered By: SYSTEM SYSTEM on 12-10-2023 Albumin BCP dye [Mass/Vol] 4.4 G/dL Normal 3.5 - 5.0 G/dL AO ADM SS Albumin/Globulin [Mass ratio] 1.6 {ratio} Normal 1.1 - 2.5 ratio AO ADM SS ALP [Catalytic activity/Vol] 61 U/L Normal 40 - 135 U/L AO ADM SS ALT With P-5'-P [Catalytic activity/Vol] 39 U/L Normal 16 - 63 U/L AO ADM SS AST With P-5'-P [Catalytic activity/Vol] 22 U/L Normal 10 - 40 U/L AO ADM SS Bilirubin [Mass/Vol] 0.8 mg/dL Normal 0.2 - 1 .0 mg/dL AO ADM SS Comment on above: Interpretive Data: U se of this assay is not recommended for patients undergoing treatment with eltrombopag due to the potential for falsely elevated results. Calcium [Mass/Vol] 9.6 mg/dL Normal 8.4 - 10. 2 mg/dL AO ADM SS Chloride [Moles/Vol] 104 mmol/L Normal 98 - 10 7 mmol/L AO ADM SS CO2 [Moles/Vol] 28 mmol/L Normal 22 - 29 mmol/L AO ADM SS Creatinine [Mass/Vol] 1.32 mg/dL High 0.70 - 1.30 mg/dL AO ADM SS Electrolyte Balance 7.0 mEq/L Normal 4.0 - 15 .0 mEq/L AO ADM SS GFR/1.73 sq M.predicted among blacks MDRD (S/P/Bld) [Vol rate/Area] 70 ml/min/1.73sqm Invalid Interpretation Code AO Chemistry S Comment on above: Interpretive Data: GFR Population mean for , Non- Americans Ages 20-29 = 116 mL/min/1.73 sq.m. Ages 30-39 = 107 mL/min/1.73 sq.m. Ages 40-49 = 99 mL/min/1.73 sq.m. Ages 50-59 = 93 mL/min/1.73 sq.m. Ages 60-69 = 85 mL/min/1.73 sq.m. Ages 70+ = 75 mL/min/1.73 sq.m. Chronic Kidney Disease: Less than 60 mL/min/1.73 square meters End Stage Renal Disease: Less than 15 mL/min/1.73 square meters GFR/1.73 sq M.predicted among non-blacks MDRD (S/P/Bld) [Vol rate/Area] 58 ml/min/1.73sqm Invalid Interpretation Code AO Chemistry S Comment on above: Interpretive Data: GFR Population mean for , Non- Americans Ages 20-29 = 116 mL/min/1.73 sq.m. Ages 30-39 = 107 mL/min/1.73 sq.m. Ages 40-49 = 99 mL/min/1.73 sq.m. Ages 50-59 = 93 mL/min/1.73 sq.m. Ages 60-69 = 85 mL/min/1.73 sq.m. Ages 70+ = 75 mL/min/1.73 sq.m. Chronic Kidney Disease: Less than 60 mL/min/1.73 square meters End Stage Renal Disease: Less than 15 mL/min/1.73 square meters Globulin 2.8 G/dL Invalid Interpretation Code AO ADM SS Glucose [Mass/Vol] 89 mg/dL Normal 70 - 105 mg/dL AO ADM SS Potassium [Moles/Vol] 4.3 mmol/L Normal 3.5 - 5.1 mmol/L AO ADM SS Prostate specific Ag [Mass/Vol] 2.22 ng/mL Normal 0.00 - 4.00 ng/mL AO ADM SS Protein [Mass/Vol] 7.2 G/dL Normal 6.4 - 8.2 G/dL AO ADM SS Sodium [Moles/Vol] 139 mmol/L Normal 136 - 145 mmol/L AO ADM SS Urea nitrogen [Mass/Vol] 22 mg/dL High 7 - 18 mg/dL AO ADM SS Urea nitrogen/Creatinine [Mass ratio] 17 ratio Normal 7 - 27 ratio AO ADM SS LABORATORYOrdered By: Kahlil Miguel on 12-10-2023 Cholesterol [Mass/Vol] 158 mg/dL Normal 0 - 200 mg/dL AO ADM SS Comment on above: Interpretive Data: C holesterol Reference Interval: Less than 200 Desirable 200-239 Borderline high risk 240 and above High risk Cholesterol in HDL [Mass/Vol] 48 mg/dL Normal 40 - 60 mg/dL AO ADM SS Cholesterol in LDL [Mass/Vol] 97 mg/dL Normal 0 - 130 mg/dL AO ADM SS Triglyceride [Mass/Vol] 64 mg/dL Normal 0 - 150 mg/dL AO ADM SS Comment on above: Interpretive Data: T riglyceride Reference Interval: Less than 150 Normal 150-199 Borderline high risk 200-499 High risk 500 or higher Very high risk LIPIDon 12-10-2023 Cholesterol [Mass/Vol] 158 mg/dL Normal 0-200 Formerly [facility] ([place]) Comment on above: Result Comment: Chol esterol Reference Interval: Less than 200 Desirable 200-239 Borderline high risk 240 and above High risk Performed By: #### L IPID, GFR, CMP, PSA #### [address] [address] Cholesterol in HDL [Mass/Vol] 48 mg/dL Normal 40-60 [facility] ([place]) Comment on above: Performed By: #### L IPID, GFR, CMP, PSA #### [address] [address] Cholesterol in LDL [Mass/Vol] 97 mg/dL Normal 0-130 [facility] ([place]) Comment on above: Performed By: #### L IPID, GFR, CMP, PSA #### [address] [address] Triglyceride [Mass/Vol] 64 mg/dL Normal 0-150 [facility] ([place]) Comment on above: Result Comment: Trig lyceride Reference Interval: Less than 150 Normal 150-199 Borderline high risk 200-499 High risk 500 or higher Very high risk Performed By: #### L IPID, GFR, CMP, PSA #### [address] [address] PSAon 12-10-2023 Prostate Specific Antigen 2.22 ng/mL Normal 0.00-4.00 [facility] ([place]) Comment on above: Performed By: #### L IPID, GFR, CMP, PSA #### [address] [address] .GFRon 06-11-2023 GFR 81 ml/min/1.73sqm Normal [facility] ([place]) Comment on above: Result Comment: GFR Population mean for , Non- Americans Ages 20-29 = 116 mL/min/1.73 sq.m. Ages 30-39 = 107 mL/min/1.73 sq.m. Ages 40-49 = 99 mL/min/1.73 sq.m. Ages 50-59 = 93 mL/min/1.73 sq.m. Ages 60-69 = 85 mL/min/1.73 sq.m. Ages 70+ = 75 mL/min/1.73 sq.m. Chronic Kidney Disease: Less than 60 mL/min/1.73 square meters End Stage Renal Disease: Less than 15 mL/min/1.73 square meters Performed By: #### G FR, CMP #### [address] [address] GFR Non- 67 ml/min/1.73sqm Normal [facility] ([place]) Comment on above: Result Comment: GFR Population mean for , Non- Americans Ages 20-29 = 116 mL/min/1.73 sq.m. Ages 30-39 = 107 mL/min/1.73 sq.m. Ages 40-49 = 99 mL/min/1.73 sq.m. Ages 50-59 = 93 mL/min/1.73 sq.m. Ages 60-69 = 85 mL/min/1.73 sq.m. Ages 70+ = 75 mL/min/1.73 sq.m. Chronic Kidney Disease: Less than 60 mL/min/1.73 square meters End Stage Renal Disease: Less than 15 mL/min/1.73 square meters Performed By: #### G FR, CMP #### [address] [address] CMPon 06-11-2023 Albumin Level 4.3 G/dL Normal 3.5-5.0 [facility] ([place]) Comment on above: Performed By: #### G FR, CMP #### [address] [place] [address] Albumin/Globulin [Mass ratio] 1.7 {ratio} Normal 1.1-2.5 [facility] ([place]) Comment on above: Performed By: #### Lyly HERNANDES, CMP #### [address] [address] ALP [Catalytic activity/Vol] 60 U/L Normal 40-135 [facility] ([place]) Comment on above: Performed By: #### Lyly HERNANDES, CMP #### [address] [address] ALT [Catalytic activity/Vol] 43 U/L Normal 16-63 [facility] ([place]) Comment on above: Performed By: #### Lyly HERNANDES, CMP #### [address] [address] AST [Catalytic activity/Vol] 24 U/L Normal 10-40 [facility] ([place]) Comment on above: Performed By: #### Lyly HERNANDES, CMP #### [address] [address] Bili Total 0.7 mg/dL Normal 0.2-1.0 [facility] ([place]) Comment on above: Result Comment: Use of this assay is not recommended for patients undergoing treatment with eltrombopag due to the potential for falsely elevated results. Performed By: #### Lyly HERNANDES, CMP #### [address] [address] BUN/Creatinine Ratio 17 ratio Normal 7-27 [facility] ([place]) Comment on above: Performed By: #### Lyly HERNANDES, CMP #### [address] [address] Calcium [Mass/Vol] 9.3 mg/dL Normal 8.4-10.2 [facility] ([place]) Comment on above: Performed By: #### Lyly HERNANDES, CMP #### [address] [address] Chloride [Moles/Vol] 102 mmol/L Normal 98-107 [facility] ([place]) Comment on above: Performed By: #### Lyly HERNANDES, CMP #### [address] [address] CO2 [Moles/Vol] 30 mmol/L High 22-29 [facility] ([place]) Comment on above: Performed By: #### G , CMP #### [address] [address] Creatinine [Mass/Vol] 1.17 mg/dL Normal 0.70-1.30 [facility] ([place]) Comment on above: Performed By: #### Lyly HERNANDES, CMP #### [address] [address] Electrolyte Balance 5.0 mEq/L Normal 4.0-15.0 [facility] ([place]) Comment on above: Performed By: #### Lyly HERNANDES, CMP #### [address] [address] Globulin 2.6 G/dL Normal [facility] ([place]) Comment on above: Performed By: #### Lyly HERNANDES, CMP #### [address] [address] Glucose [Mass/Vol] 91 mg/dL Normal 70-105 [facility] ([place]) Comment on above: Performed By: #### Lyly HERNANDES, CMP #### [address] [address] Potassium [Moles/Vol] 4.5 mmol/L Normal 3.5-5.1 [facility] ([place]) Comment on above: Performed By: #### Lyly HERNANDES, CMP #### [address] [address] Sodium [Moles/Vol] 137 mmol/L Normal 136-145 [facility] ([place]) Comment on above: Performed By: #### Lyly HERNANDES, CMP #### [address] [address] Total Protein 6.9 G/dL Normal 6.4-8.2 [facility] ([place]) Comment on above: Performed By: #### yLly HERNANDES, CMP #### [address] [address] Urea nitrogen [Mass/Vol] 20 mg/dL High 7-18 [facility] ([place]) Comment on above: Performed By: #### G , [facility] #### [address] [address] LABORATORYOrdered By: SYSTEM SYSTEM on 06-11-2023 Albumin BCP dye [Mass/Vol] 4.3 G/dL Invalid Interpretation Code 3.5 - 5.0 G/dL AO ADM SS Albumin/Globulin [Mass ratio] 1.7 {ratio} Invalid Interpretation Code 1.1 - 2.5 ratio AO ADM SS ALP [Catalytic activity/Vol] 60 U/L Invalid Interpretation Code 40 - 135 U/L AO ADM SS ALT With P-5'-P [Catalytic activity/Vol] 43 U/L Invalid Interpretation Code 16 - 63 U/L AO ADM SS AST With P-5'-P [Catalytic activity/Vol] 24 U/L Invalid Interpretation Code 10 - 40 U/L AO ADM SS Bilirubin [Mass/Vol] 0.7 mg/dL Invalid Interpretation Code 0.2 - 1.0 mg/dL AO ADM SS Comment on above: Interpretive Data: U se of this assay is not recommended for patients undergoing treatment with eltrombopag due to the potential for falsely elevated results. Calcium [Mass/Vol] 9.3 mg/dL Invalid Interpretation Code 8.4 - 10.2 mg/dL AO ADM SS Chloride [Moles/Vol] 102 mmol/L Invalid Interpretation Code 98 - 107 mmol/L AO ADM SS CO2 [Moles/Vol] 30 mmol/L Invalid Interpretation Code 22 - 29 mmol/L AO ADM SS Creatinine [Mass/Vol] 1.17 mg/dL Invalid Interpretation Code 0.70 - 1.30 mg/dL AO ADM SS Electrolyte Balance 5.0 mEq/L Invalid Interpretation Code 4.0 - 15.0 mEq/L AO ADM SS GFR/1.73 sq M.predicted among blacks MDRD (S/P/Bld) [Vol rate/Area] 81 ml/min/1.73sqm Invalid Interpretation Code AO Chemistry S Comment on above: Interpretive Data: GFR Population mean for , Non- Americans Ages 20-29 = 116 mL/min/1.73 sq.m. Ages 30-39 = 107 mL/min/1.73 sq.m. Ages 40-49 = 99 mL/min/1.73 sq.m. Ages 50-59 = 93 mL/min/1.73 sq.m. Ages 60-69 = 85 mL/min/1.73 sq.m. Ages 70+ = 75 mL/min/1.73 sq.m. Chronic Kidney Disease: Less than 60 mL/min/1.73 square meters End Stage Renal Disease: Less than 15 mL/min/1.73 square meters GFR/1.73 sq M.predicted among non-blacks MDRD (S/P/Bld) [Vol rate/Area] 67 ml/min/1.73sqm Invalid Interpretation Code AO Chemistry S Comment on above: Interpretive Data: GFR Population mean for , Non- Americans Ages 20-29 = 116 mL/min/1.73 sq.m. Ages 30-39 = 107 mL/min/1.73 sq.m. Ages 40-49 = 99 mL/min/1.73 sq.m. Ages 50-59 = 93 mL/min/1.73 sq.m. Ages 60-69 = 85 mL/min/1.73 sq.m. Ages 70+ = 75 mL/min/1.73 sq.m. Chronic Kidney Disease: Less than 60 mL/min/1.73 square meters End Stage Renal Disease: Less than 15 mL/min/1.73 square meters Globulin 2.6 G/dL Invalid Interpretation Code AO ADM SS Glucose [Mass/Vol] 91 mg/dL Invalid Interpretation Code 70 - 105 mg/dL AO ADM SS Potassium [Moles/Vol] 4.5 mmol/L Invalid Interpretation Code 3.5 - 5.1 mmol/L AO ADM SS Protein [Mass/Vol] 6.9 G/dL Invalid Interpretation Code 6.4 - 8.2 G/dL AO ADM SS Sodium [Moles/Vol] 137 mmol/L Invalid Interpretation Code 136 - 145 mmol/L AO ADM SS Urea nitrogen [Mass/Vol] 20 mg/dL Invalid Interpretation Code 7 - 18 mg/dL AO ADM SS Urea nitrogen/Creatinine [Mass ratio] 17 ratio Invalid Interpretation Code 7 - 27 ratio AO ADM SS LABORATORYOrdered By: Flaquita Naqvi on 06-11-2023 Cholesterol [Mass/Vol] 147 mg/dL Invalid Interpretation Code 0 - 200 mg/dL AO ADM SS Comment on above: Interpretive Data: C holesterol Reference Interval: Less than 200 Desirable 200-239 Borderline high risk 240 and above High risk Cholesterol in HDL [Mass/Vol] 50 mg/dL Invalid Interpretation Code 40 - 60 mg/dL AO ADM SS Cholesterol in LDL [Mass/Vol] 88 mg/dL Invalid Interpretation Code 0 - 130 mg/dL AO ADM SS Triglyceride [Mass/Vol] 43 mg/dL Invalid Interpretation Code 0 - 150 mg/dL AO ADM SS Comment on above: Interpretive Data: T riglyceride Reference Interval: Less than 150 Normal 150-199 Borderline high risk 200-499 High risk 500 or higher Very high risk LIPIDon 06-11-2023 Cholesterol [Mass/Vol] 147 mg/dL Normal 0-200 [facility] ([place]) Comment on above: Result Comment: Chol esterol Reference Interval: Less than 200 Desirable 200-239 Borderline high risk 240 and above High risk Performed By: #### L IPID #### [address] [address] Cholesterol in HDL [Mass/Vol] 50 mg/dL Normal 40-60 [facility] ([place]) Comment on above: Performed By: #### L IPID #### [address] [address] Cholesterol in LDL [Mass/Vol] 88 mg/dL Normal 0-130 [facility] ([place]) Comment on above: Performed By: #### L IPID #### [address] [address] Triglyceride [Mass/Vol] 43 mg/dL Normal 0-150 [facility] ([place]) Comment on above: Result Comment: Trig lyceride Reference Interval: Less than 150 Normal 150-199 Borderline high risk 200-499 High risk 500 or higher Very high risk Performed By: #### L IPID #### [address] [address] LABORATORYOrdered By: SYSTEM SYSTEM on 12-04-2022 Albumin BCP dye [Mass/Vol] 4.5 G/dL Invalid Interpretation Code 3.5 - 5.0 G/dL AO ADM SS Albumin/Globulin [Mass ratio] 2.0 {ratio} Invalid Interpretation Code 1.1 - 2.5 ratio AO ADM SS ALP [Catalytic activity/Vol] 57 U/L Invalid Interpretation Code 40 - 135 U/L AO ADM SS ALT With P-5'-P [Catalytic activity/Vol] 49 U/L Invalid Interpretation Code 16 - 63 U/L AO ADM SS AST With P-5'-P [Catalytic activity/Vol] 25 U/L Invalid Interpretation Code 10 - 40 U/L AO ADM SS Bilirubin [Mass/Vol] 0.8 mg/dL Invalid Interpretation Code 0.2 - 1.0 mg/dL AO ADM SS Calcium [Mass/Vol] 9.4 mg/dL Invalid Interpretation Code 8.4 - 10.2 mg/dL AO ADM SS Chloride [Moles/Vol] 104 mmol/L Invalid Interpretation Code 98 - 107 mmol/L AO ADM SS CO2 [Moles/Vol] 28 mmol/L Invalid Interpretation Code 22 - 29 mmol/L AO ADM SS Creatinine [Mass/Vol] 1.11 mg/dL Invalid Interpretation Code 0.70 - 1.30 mg/dL AO ADM SS Electrolyte Balance 7.0 mEq/L Invalid Interpretation Code 4.0 - 15.0 mEq/L AO ADM SS GFR 86 ml/min/1.73sqm Invalid Interpretation Code AO Chemistry S GFR Non- 71 ml/min/1.73sqm Invalid Interpretation Code AO Chemistry S Globulin 2.2 G/dL Invalid Interpretation Code AO ADM SS Glucose [Mass/Vol] 87 mg/dL Invalid Interpretation Code 70 - 105 mg/dL AO ADM SS Potassium [Moles/Vol] 4.6 mmol/L Invalid Interpretation Code 3.5 - 5.1 mmol/L AO ADM SS Prostate specific Ag [Mass/Vol] 2.22 ng/mL Invalid Interpretation Code 0.00 - 4.00 ng/mL AO ADM SS Protein [Mass/Vol] 6.7 G/dL Invalid Interpretation Code 6.4 - 8.2 G/dL AO ADM SS Sodium [Moles/Vol] 139 mmol/L Invalid Interpretation Code 136 - 145 mmol/L AO ADM SS Urea nitrogen [Mass/Vol] 26 mg/dL Invalid Interpretation Code 7 - 18 mg/dL AO ADM SS Urea nitrogen/Creatinine [Mass ratio] 23 ratio Invalid Interpretation Code 7 - 27 ratio AO ADM SS LABORATORYOrdered By: Flaquita Naqvi on 12-04-2022 Cholesterol [Mass/Vol] 152 mg/dL Invalid Interpretation Code 0 - 200 mg/dL AO ADM SS Cholesterol in HDL [Mass/Vol] 59 mg/dL Invalid Interpretation Code 40 - 60 mg/dL AO ADM SS Cholesterol in LDL [Mass/Vol] 83 mg/dL Invalid Interpretation Code 0 - 130 mg/dL AO ADM SS Triglyceride [Mass/Vol] 48 mg/dL Invalid Interpretation Code 0 - 150 mg/dL AO ADM SS LABORATORYOrdered By: KEITH AGUIAR CONTRIBUTOR_SYSTEM on 12-04-2022 Sex Hormone Binding Globulin Panel 35 nmol/L Invalid Interpretation Code 14-82nmol/L AO Sendouts SS Comment on above: Result Comment: Perf ormed By: [facility] [address] [place] [address] Crossing Tender: Reilly Gonzales III, M.D. [facility]#: [id number] LABORATORYOrdered By: Kahlil Hernandez on 05-29-2022 Albumin BCP dye [Mass/Vol] 4.4 G/dL Invalid Interpretation Code 3.5 - 5.0 G/dL AO ADM SS Albumin/Globulin [Mass ratio] 1.8 {ratio} Invalid Interpretation Code 1.1 - 2.5 ratio AO ADM SS ALP [Catalytic activity/Vol] 62 U/L Invalid Interpretation Code 40 - 135 U/L AO ADM SS ALT With P-5'-P [Catalytic activity/Vol] 30 U/L Invalid Interpretation Code 16 - 63 U/L AO ADM SS AST With P-5'-P [Catalytic activity/Vol] 23 U/L Invalid Interpretation Code 10 - 40 U/L AO ADM SS Bilirubin [Mass/Vol] 1.0 mg/dL Invalid Interpretation Code 0.2 - 1.0 mg/dL AO ADM SS Calcium [Mass/Vol] 9.3 mg/dL Invalid Interpretation Code 8.4 - 10.2 mg/dL AO ADM SS Chloride [Moles/Vol] 103 mmol/L Invalid Interpretation Code 98 - 107 mmol/L AO ADM SS Cholesterol [Mass/Vol] 152 mg/dL Invalid Interpretation Code 0 - 200 mg/dL AO ADM SS Cholesterol in HDL [Mass/Vol] 58 mg/dL Invalid Interpretation Code 40 - 60 mg/dL AO ADM SS Cholesterol in LDL [Mass/Vol] 82 mg/dL Invalid Interpretation Code 0 - 130 mg/dL AO ADM SS CO2 [Moles/Vol] 29 mmol/L Invalid Interpretation Code 22 - 29 mmol/L AO ADM SS Creatinine [Mass/Vol] 1.12 mg/dL Invalid Interpretation Code 0.70 - 1.30 mg/dL AO ADM SS Electrolyte Balance 9.0 mEq/L Invalid Interpretation Code 4.0 - 15.0 mEq/L AO ADM SS Globulin 2.5 G/dL Invalid Interpretation Code AO ADM SS Glucose [Mass/Vol] 84 mg/dL Invalid Interpretation Code 70 - 105 mg/dL AO ADM SS Potassium [Moles/Vol] 5.0 mmol/L Invalid Interpretation Code 3.5 - 5.1 mmol/L AO ADM SS Protein [Mass/Vol] 6.9 G/dL Invalid Interpretation Code 6.4 - 8.2 G/dL AO ADM SS Sodium [Moles/Vol] 141 mmol/L Invalid Interpretation Code 136 - 145 mmol/L AO ADM SS Triglyceride [Mass/Vol] 62 mg/dL Invalid Interpretation Code 0 - 150 mg/dL AO ADM SS Urea nitrogen [Mass/Vol] 19 mg/dL Invalid Interpretation Code 7 - 18 mg/dL AO ADM SS Urea nitrogen/Creatinine [Mass ratio] 17 ratio Invalid Interpretation Code 7 - 27 ratio AO ADM SS LABORATORYOrdered By: SYSTEM SYSTEM on 05-29-2022 GFR 85 ml/min/1.73sqm Invalid Interpretation Code AO Chemistry S GFR Non- 70 ml/min/1.73sqm Invalid Interpretation Code AO Chemistry S LABORATORYOrdered By: Flaquita Naqvi on 11-14-2021 Albumin BCP dye [Mass/Vol] 4.4 G/dL Invalid Interpretation Code 3.5 - 5.0 G/dL AO ADM SS Albumin/Globulin [Mass ratio] 1.6 {ratio} Invalid Interpretation Code 1.1 - 2.5 ratio AO ADM SS ALP [Catalytic activity/Vol] 57 U/L Invalid Interpretation Code 40 - 135 U/L AO ADM SS ALT With P-5'-P [Catalytic activity/Vol] 21 U/L Invalid Interpretation Code 16 - 63 U/L AO ADM SS AST With P-5'-P [Catalytic activity/Vol] 16 U/L Invalid Interpretation Code 10 - 40 U/L AO ADM SS Bilirubin [Mass/Vol] 1.0 mg/dL Invalid Interpretation Code 0.2 - 1.0 mg/dL AO ADM SS Calcium [Mass/Vol] 9.5 mg/dL Invalid Interpretation Code 8.4 - 10.2 mg/dL AO ADM SS Chloride [Moles/Vol] 104 mmol/L Invalid Interpretation Code 98 - 107 mmol/L AO ADM SS Cholesterol [Mass/Vol] 266 mg/dL Invalid Interpretation Code 0 - 200 mg/dL AO ADM SS Cholesterol in HDL [Mass/Vol] 62 mg/dL Invalid Interpretation Code 40 - 60 mg/dL AO ADM SS Cholesterol in LDL [Mass/Vol] 189 mg/dL Invalid Interpretation Code 0 - 130 mg/dL AO ADM SS CO2 [Moles/Vol] 29 mmol/L Invalid Interpretation Code 22 - 29 mmol/L AO ADM SS Creatinine [Mass/Vol] 1.15 mg/dL Invalid Interpretation Code 0.70 - 1.30 mg/dL AO ADM SS Electrolyte Balance 8.0 mEq/L Invalid Interpretation Code 4.0 - 15.0 mEq/L AO ADM SS Globulin 2.7 G/dL Invalid Interpretation Code AO ADM SS Glucose [Mass/Vol] 87 mg/dL Invalid Interpretation Code 70 - 105 mg/dL AO ADM SS Potassium [Moles/Vol] 5.0 mmol/L Invalid Interpretation Code 3.5 - 5.1 mmol/L AO ADM SS Protein [Mass/Vol] 7.1 G/dL Invalid Interpretation Code 6.4 - 8.2 G/dL AO ADM SS Sodium [Moles/Vol] 141 mmol/L Invalid Interpretation Code 136 - 145 mmol/L AO ADM SS Triglyceride [Mass/Vol] 74 mg/dL Invalid Interpretation Code 0 - 150 mg/dL AO ADM SS Urea nitrogen [Mass/Vol] 21 mg/dL Invalid Interpretation Code 7 - 18 mg/dL AO ADM SS Urea nitrogen/Creatinine [Mass ratio] 18 ratio Invalid Interpretation Code 7 - 27 ratio AO ADM SS LABORATORYOrdered By: SYSTEM SYSTEM on 11-14-2021 GFR 83 ml/min/1.73sqm Invalid Interpretation Code AO Chemistry S GFR Non- 68 ml/min/1.73sqm Invalid Interpretation Code AO Chemistry S CNNURSEon 07-16-2019 [facility] Nurse Visit (FAMPWS) -------- JETT PICKERING ([id number]) 1975 M Date Time Provider Department 07/16/19 10:10 AM [place] NURSE [facility]AN[place] During your visit today, we recorded the following information about you: Referring Provider: SELF [200] Allergies As of Date: 07/16/2019 (No Known Allergies) Date Reviewed: 03/05/2013 Reviewed by: Doreen Rhodes Lpn - Fully Assessed Reason for Visit: Imm/Inj [58] Cmt: Flu Vaccine Primary Visit Diagnosis:Need for vaccination [Z23] Order(s):INFLUENZA VACCINE QUADRIVALENT AGE 3 YRS PLUS + IM [[id number]] Order #: [id number] Prescriptions as of 07/16/2019 Sig: EZETIMIBE 10 MG-SIMVASTATIN 2* Take 1 tablet by mouth daily * Problem List As Of Date: 07/16/2019 (None) Encounter Status:Closed by DOUGLAS MIRZA CMA on 07/16/19 [facility] Encounters Encounter Date Encounter Type Care Provider Facility Start: 07-11-2025 ambulatory Gab Carlos PROFESSOR OF PSYCHOLOGY Facility:[facility] Start: 06-06-2025 End: 06-10-2025 ambulatory GAB CARLOS [employer] Facility:[facility] Start: 06-06-2025 End: 06-10-2025 Encounter for general adult medical examination without abnormal findings GAB CARLOS [employer] Facility:[facility] Start: 06-06-2025 End: 06-10-2025 Outreach Lab GAB CARLOS [employer] [facility] Start: 12-08-2024 End: 12-12-2024 ambulatory GAB CARLOS [employer] Facility:[facility] Start: 06-02-2024 End: 06-06-2024 Outreach Lab GAB CARLOS [employer] [facility] Start: 12-10-2023 End: 12-15-2023 ambulatory GAB CARLOS [employer] Facility:[facility] Start: 12-10-2023 End: 12-14-2023 Outreach Lab GAB CARLOS [employer] [facility] Start: 06-11-2023 End: 06-16-2023 ambulatory GAB CARLOS [employer] Facility:[facility] Start: 06-11-2023 End: 06-15-2023 Outreach Lab GAB CARLOS [employer] [facility] Start: 12-04-2022 End: 12-08-2022 Outreach Lab GAB CARLOS [employer] [facility] Start: 05-29-2022 End: 06-02-2022 Outreach Lab GAB CARLOS [employer] [facility] Start: 11-14-2021 End: 11-18-2021 Outreach Lab GAB CARLOS [employer] [facility] Procedures Date Procedure Procedure Detail Performing Clinician Start: 06-07-2025 PSA screening GAB ESPAÑA [employer] Comment on above: Result Comment: Ayah rowe ECLIA methodology. According to the [employer], Serum PSA should decrease and remain at undetectable levels after radical prostatectomy. The AUA defines biochemical recurrence as an initial PSA value 0.2 ng/mL or greater followed by a subsequent confirmatory PSA value 0.2 ng/mL or greater. Values obtained with different assay methods or kits cannot be used interchangeably. Results cannot be interpreted as absolute evidence of the presence or absence of malignant disease. Performed By: #### A 1C, ADIFF, GFR, LIPID, [id number], ANEU, [id number], CBC, [id number], CMP, TSH #### [facility] [address], [place] [address] #### LH, FSH, PROL, E2 #### [place] [address] Total nephrectomy [employer] Immunizations Immunization Date Immunization Notes Care Provider Fa cility 09-05-2021 SARS-CoV-2 (COVID-19 ) mRNA-1273 vaccine GAB CAR[employer]OS [employer] [facility] Comment on above: Result Comment: 2021: [id number] 01-17-2021 SARS-CoV-2 (COVID-19 ) mRNA-1273 vaccine GAB [employer] [facility] 12-20-2020 SARS-CoV-2 (COVID-19 ) mRNA-1273 vaccine G[employer] [facility] 07-03-2020 influenza, injectabl e, quadrivalent, preservative free; Translations: [Fluarix PF Quadrivalent ] G[employer] [facility] 07-16-2019 influenza virus vaccine, unspecified formulation G[employer] [facility] 06-27-2017 influenza virus vaccine, unspecified formulation [employer] [facility] 07-12-2016 influenza virus vaccine, unspecified formulation G[employer] [facility] 08-04-2015 influenza virus vaccine, unspecified formulation G[employer] [facility] Payers Date Payer Category Payer Self-pay 2025 Private Health Insurance [id number] 2023 Unknown [id number] 1975 Unknown [id number] 1974 Unknown [id number] 1974 Unknown [id number] 1974 Unknown [id number] [id number] [id number] Unknown [id number] [id number] [id number] Social History Date Type Detail Facility Start: 06-25-2020 End: 03-20-2025 Never smoked tobacco (finding) [facility] Sex Assigned At [facility] Start: 12-13-2014 Sex Male (finding) [facility] Evaluation + Plan note Note Date & Type Note Facility Evaluation + Plan note Future Appointments Appointment Date:11/21/2021 10:40:00 AM Scheduled Provider:GAB CARLOS APRN, CNP Location:[facility] Appointment Type:PC OV [facility] Evaluation + Plan note Note Date & Type Note Facility Evaluation + Plan note Future Appointments Appointment Date:06/05/2022 08:00:00 AM Scheduled Provider:GAB CARLOS APRN, CNP Location:[facility] Appointment Type:PC OV Follow Up Diagnostic Tests PendingTestosterone, Free and Total 05/29/22 [facility] Evaluation + Plan note Note Date & Type Note Facility Evaluation + Plan note Future Appointments Appointment Date:12/11/2022 08:00:00 AM Scheduled Provider:GAB CARLOS APRN, CNP Location:[facility] Appointment Type:PC OV Follow Up Diagnostic Tests PendingTestosterone, Free and Total 12/04/22 [facility] Evaluation + Plan note Note Date & Type Note Facility Evaluation + Plan note Future Appointments Appointment Date:06/18/2023 08:00:00 AM Scheduled Provider:GAB CARLOS APRN, CNP Location:[facility] Appointment Type:PC OV Follow Up [facility] Evaluation + Plan note Note Date & Type Note Facility Evaluation + Plan note Future Appointments Appointment Date:12/15/2023 07:20:00 AM Scheduled Provider:GAB CARLOS APRN - IADEN Location:[facility] Appointment Type:PC OV [facility] Evaluation + Plan note Note Date & Type Note Facility Evaluation + Plan note Future Appointments Appointment Date:06/16/2024 07:00:00 AM Scheduled Provider:GAB CARLOS APRN, CNP Location:[facility] Appointment Type:PC Wellness Annual Diagnostic Tests PendingTestosterone,Free and Total 06/02/24 [facility] Evaluation + Plan note Laboratory Note Date & Type Note Facility Evaluation + Plan note Future Appointments Appointment Date:06/13/2025 07:00:00 AM Scheduled Provider:GAB CARLOS APRN, CNP Location:[facility] Appointment Type:PC Wellness Annual Appointment Date:06/23/2025 07:00:00 AM Scheduled Provider:GAB CARLOS APRN - AIDEN Location:[facility] Appointment Type:PC OV Controlled Medication Future Scheduled TestsTestosterone,Free and Total 06/20/25Prostate Specific Antigen 06/15/25Complete Blood Count 06/15/25Complete Metabolic Panel 06/15/25 [facility] Hospital course Narrative Note Date & Type Note Facility Hospital course Narrative No data available for this section [facility] Hospital Discharge instructions Note Date & Type Note Facility Hospital Discharge instructions No data available for this section [facility] Progress note Note Date & Type Note Facility Progress note No data available for this section [facility] Summary Purpose Family History No Family History Records Found No data available for this section No data available for this section No Family History Records Found No data available for this section No Family History Records FoundNo Family History Records Found No data available for this section Advance Directives No Advanced Directives Records FoundNo Advanced Directives Records FoundNo Advanced Directives Records FoundNo Advanced Directives Records Found Additional Source Comments (unrecognized sect ion and content) No Status Records FoundNo Status Records FoundNo Status Records FoundNo Status Records Found INFORMATION SOURCE (unrecogn ized section and content) DATE CREATED AUTHOR 07/16/2019 [facility] DATE CREATED AUTHOR AUTHOR'S ORGANIZ ATION 12/15/2023 [facility] ([place] DATE CREATED AUTHOR AUTHOR'S ORGANIZ ATION 06/11/2025 [facility] DATE CREATED AUTHOR AUTHOR'S ORGANIZ ATION 07/01/2025 [facility] Care Team (unrecognized sect ion and content) Care Team Personnel Name: GAB CARLOS APRN - [employer] Position: P4 Advanced Practice Nurse Med Service: Employed Provider Member Role: Primary Care Physician Address: Address: [address] [place] [address] Care Team Related Persons Name: CHRIS PICKERING Patient Care team informatio n (unrecognized section and content) Care Team Personnel Name: GAB CARLOS APRN - [employer] Position: P4 Advanced High [employer] Member Role: Primary Care Physician Address: Address: [address] [place] [address] Care Team Related Persons Name: CHRIS PICKERING Care Team Personnel Name: GAB CAR[employer]OS [employer] Position: P4 Advanced High [employer] Member Role: Primary Care Physician Address: Address: [address] [place] [address] Care Team Related Persons Name: CHRIS PICKERING Care Team Personnel Name: GAB CAR[employer]OS [employer] Position: P4 Advanced High [employer] Member Role: Primary Care Physician Address: Address: [address] [place] [address] [place] [address]- [place] Care Team Related Persons Name: LADAN CHRIS Care Team Personnel Name: GAB CARLOS APRN, CNP Position: P4 Advanced High [employer] Member Role: Primary Care Physician Address: Address: [address] [place] [address] [place] Care Team Related Persons Name: LADAN CHRIS Care Team Personnel Name: GAB CARLOS APRN, CNP Position: P4 Advanced High [employer] Member Role: Primary Care Physician Address: [address] [place] [address]- [place] [employer]: Care Team Related Persons Name: KATHERINE PICKERINGY FOR RECORDS PERTAINING TO PATIENTS WHO ARE OR HAVE BEEN ENROLLED IN A CHEMICAL DEPENDENCY/SUBSTANCEABUSE PROGRAM, SOME INFORMATION MAY BE OMITTED. This clinical summary was aggregated from multiple sources. Caution should be exercised in using it in the provision of clinical care. This summary normalizes information from multiple sources, and as a consequence, information in this document may materially change the coding, format and clinical context of patient data. In addition, data may be omitted in some cases. CLINICAL DECISIONS SHOULD BE BASED ON THE PRIMARY CLINICAL RECORDS. [employer] provides no warranty or guarantee of the accuracy or completeness of information in this document.
--- OUTSIDE RECORDS SUMMARY | 2025-07-11 07:29 | XMS RPT_ITS | CCD ---
Author Organization [facility] Inform ion Partnership [facility] Care Team Providers Care Band Saw Marker Name Role Phone BREANNA ATHLETIC INSTRUCTOR - RESTAURANT CASHIER, GAB Mejia Primary Care Phys ician BREANNA ATHLETIC INSTRUCTOR - RESTAURANT CASHIER, GAB Mejia Attending U navailable BREANNA ATHLETIC INSTRUCTOR - RESTAURANT CASHIER, GAB Mejia Primary Care U navailable BREANNA ATHLETIC INSTRUCTOR - RESTAURANT CASHIER, GAB Mejia Attending U navailable BREANNA ATHLETIC INSTRUCTOR - RESTAURANT CASHIER, GAB Mejia Primary Care U navailable BREANNA ATHLETIC INSTRUCTOR - RESTAURANT CASHIER, GAB Mejia Attending U navailable BREANNA ATHLETIC INSTRUCTOR - RESTAURANT CASHIER, GAB Mejia Primary Care U navailable BREANNA ATHLETIC INSTRUCTOR - RESTAURANT CASHIER, GAB Mejia Primary Care U navailable BREANNA ATHLETIC INSTRUCTOR - RESTAURANT CASHIER, GAB Mejia Attending U navailable Mason INVESTMENT PROFESSIONAL, Gab Florence Referring Unav ailable Breanna INVESTMENT PROFESSIONAL, Gab Florence Attending Unav ailable Breanna INVESTMENT PROFESSIONAL, Gab Florence Primary Care Unav ailable Medications [...] qDay, # 90 tab(s), 1 Refill(s), Pharmacy: [facility], 176, cm, 12/13/24 6:58:00 EDT, Height, [...] qDay, # 90 tab(s), 1 Refill(s), Pharmacy: [facility], 176, cm, 12/15/23 7:25:00 EDT, Height, kg, 12/15/23 7:25:00 EDT, Dosing Weight Start Date: 12/15/23 Stop Date: 06/12/24 Status: Ordered Start: 11-21-2021 End: 12-02-2022 take 1 tablet by mouth once daily ezetimibe-simvastatin 10 mg-20 mg oral tablet Dose = 1 tab(s), Oral, qDay, # 90 tab(s), 1 Refill(s), Pharmacy: [facility], 176, cm, 06/05/22 7:57:00 EDT, Height, kg, 06/05/22 7:57:00 EDT, Dosing Weight Start Date: 06/05/22 Stop Date: 12/02/22 Status: Ordered Start: 07-19-2020 take 1 tablet by delonte th once daily ezetimibe-simvastatin 10 mg-20 mg oral tablet See Instructions, TAKE 1 TABLET ONCE DAILY, # 90 tab(s), 3 Refill(s), Pharmacy: [facility], 175, cm, 07/03/20 8:08:00 EDT, Height, kg, 07/03/20 8:08:00 EDT, Dosing Weight Start Date: 07/19/20 Status: Ordered tadalafil 5 mg oral tablet (6 sources) Phosphodiesterase 5 Inhibitor Start: 12-13-2024 End: 06-11-2025 Cialis 5 mg oral tablet Dose : 5 mg = 1 tab(s), Oral, qDay, # 90 tab(s), 1 Refill(s), Pharmacy: [facility], Hypogonadism, male BPH without urinary obstruction, [...] qDay, # 90 tab(s), 1 Refill(s), Pharmacy: [facility], Hypogonadism, male BPH without urinary obstruction, 176, cm, 12/15/23 7:25:00 EDT, Height, kg, 12/15/23 7:25:00 EDT, Dosing Weight Start Date: 12/15/23 Stop Date: 06/12/24 Status: Ordered Start: 12-11-2022 End: 06-09-2023 Cialis 5 mg oral tablet Dose : 5 mg = 1 tab(s), Oral, qDay, # 90 tab(s), 1 Refill(s), Pharmacy: [facility], Hypogonadism, male BPH without urinary obstruction, 176, cm, 12/11/22 8:05:00 EDT, Height, kg, 12/11/22 8:05:00 EDT, Dosing Weight Start Date: 12/11/22 Stop Date: 06/09/23 Status: Ordered Start: 11-21-2021 End: 12-02-2022 Cialis 5 mg oral tablet Dose : 5 mg = 1 tab(s), Oral, qDay, # 90 tab(s), 1 Refill(s), Pharmacy: [facility], Hypogonadism, male BPH without urinary obstruction, [...] 03/20/2025, # 10 mL, 2 Refill(s), Pharmacy: [facility], Hypogonadism, male Testosterone deficiency in [...] 11-21-2021 Chronic Other aftercare (2 sources) Other assisted (current) drug therapy; Translations: [Other termite helper (current) drug therapy] Onset: 06-06-2025 Episodic Other [...] Free Testost Direct 3.1 pg/mL Low 7.2-24.0 [facility] Comment on above: Result Comment: Perf ormed At: [facility] [address] [id number] Brian Omalley MD Ph:[phone] Performed At: [facility] [address] [place], [place] [id number] Jagdish Zabala PhD Ph:[phone] Performed By: #### A 1C, ADIFF, GFR, LIPID, [id number], ANEU, [id number], CBC, 046426, CMP, TSH #### [address] [address] #### LH, FSH, PROL, E2 #### [facility] [address] [place] [address] Testosterone Lvl 285 ng/dL Normal 264-916 [facility] Comment on above: Result Comment: Adul t male reference interval is based on a population of healthy nonobese males (BMI <30) between 19 and 39 years old. johnathon Man.al. JCEM 2017,102;5394-2483. PMID: [id number]. Performed By: #### A 1C, ADIFF, GFR, LIPID, [id number], ANEU, 340134, CBC, 907231, CMP, TSH #### [address] [address] #### LH, FSH, PROL, E2 #### [address] [address] PSAFon 06-07-2025 % Free PSA 36.8 % Normal [facility] Comment on above: Result Comment: The table [...] any other population of men. Performed At: [address] [id number] Jagdish Zabaal PhD Ph:[phone] Performed By: #### A 1C, ADIFF, GFR, LIPID, [id number], ANEU, [id number], CBC, 8190926, CMP, TSH #### [place] [address] #### LH, FSH, PROL, E2 #### [place] [address] PSA Free 1.03 ng/mL Normal N/A [facility] Comment on above: Result Comment: Ayah AHUJA methodology. Performed By: #### A 1C, ADIFF, GFR, LIPID, [id number], ANEU, [id number], CBC, 8190926, CMP, TSH #### [place] [address] #### LH, FSH, PROL, E2 #### [place] [address] YUHA1co 06-07-2025 Sex Horm Bind Glob 39.7 nmol/L Normal 19.3-76.4 [facility] Comment on above: Result Comment: Perf ormed At: [address] [id number] Jagdish Zabala PhD Ph:[phone] Performed By: #### A 1C, ADIFF, GFR, LIPID, [id number], ANEU, [id number], CBC, 8190926, CMP, TSH #### [place] [address] #### LH, FSH, PROL, E2 #### [place] [address] Sex Horm Bind Glob 39.5 nmol/L Normal 19.3-76.4 [facility] Comment on above: Result Comment: Perf ormed At: [address] [id number] Jagdish Zabala PhD Ph:[phone] Performed By: #### A 1C, ADIFF, GFR, LIPID, [id number], ANEU, [id number], CBC, 8190926, CMP, TSH #### [address] [address] #### LH, FSH, PROL, E2 #### [address] [address] .Auto Diffon 06-06-2025 Basophil, Absolute 0.0 10 3/mcL Normal 0.0-0.3 [facility] Comment on above: Performed By: #### A 1C, ADIFF, GFR, LIPID, [id number], ANEU, [id number], CBC, 8190926, CMP, TSH #### [place] [address] #### LH, FSH, PROL, E2 #### [address] [address] Basophils/100 WBC (Bld) 0.4 % Normal 0.0-2.5 [facility] Comment on above: Performed By: #### A 1C, ADIFF, GFR, LIPID, [id number], ANEU, 776696, CBC, 8190926, CMP, TSH #### [address] [address] #### LH, FSH, PROL, E2 #### [address] [address] Eosinophil, Absolute 0.1 10 3/mcL Normal 0.0-0.7 [facility] Comment on above: Performed By: #### A 1C, ADIFF, GFR, LIPID, [id number], ANEU, 343454, CBC, 000490, CMP, TSH #### [address] [address] #### LH, FSH, PROL, E2 #### [address] [address] Eosinophils/100 WBC (Bld) 1.9 % Normal 0.0-6.0 [facility] Comment on above: Performed By: #### A 1C, ADIFF, GFR, LIPID, [id number], ANEU, [id number], CBC, 8190926, CMP, TSH #### [address] [address] #### LH, FSH, PROL, E2 #### [address] [address] Lymphocyte, Absolute 1.1 10 3/mcL Normal 0.9-4.3 [facility] Comment on above: Performed By: #### A 1C, ADIFF, GFR, LIPID, [id number], ANEU, 280659, CBC, 8190926, CMP, TSH #### [address] [address] #### LH, FSH, PROL, E2 #### [address] [address] Lymphocytes/100 WBC (Bld) 23.6 % Normal 20.0-40.0 [facility] Comment on above: Performed By: #### A 1C, ADIFF, GFR, LIPID, [id number], ANEU, 296574, CBC, 8190926, CMP, TSH #### [place] [address] #### LH, FSH, PROL, E2 #### [address] [address] Monocyte, Absolute 0.6 10 3/mcL Normal 0.1-1.4 [facility] Comment on above: Performed By: #### A 1C, ADIFF, GFR, LIPID, [id number], ANEU, 631434, CBC, 8190926, CMP, TSH #### [place] [address] #### LH, FSH, PROL, E2 #### [address] [address] Monocytes/100 WBC (Bld) 12.4 % Normal 2.0-13.0 [facility] Comment on above: Performed By: #### A 1C, ADIFF, GFR, LIPID, [id number], ANEU, 876161, CBC, 8190926, CMP, TSH #### [place] [address] #### LH, FSH, PROL, E2 #### [address] [address] Neutrophils/100 WBC (Bld) 61.7 % Normal 50.0-75.0 [facility] Comment on above: Performed By: #### A 1C, ADIFF, GFR, LIPID, [id number], ANEU, 802716, CBC, 806195, CMP, TSH #### [address] [address] #### LH, FSH, PROL, E2 #### [address] [address] .GFRon 06-06-2025 Estimated Glomerular Filtration Rate 82 ml/min/1.73sqm Normal [facility] Comment on above: Result Comment: Stages of [...] By: #### A 1C, ADIFF, GFR, LIPID, [id number], ANEU, 364126, CBC, 8190926, CMP, TSH #### [address] [address] #### LH, FSH, PROL, E2 #### [address] [address] .NEUABSon 06-06-2025 Neutrophil, Absolute 3.0 10 3/mcL Normal 2.3-8.1 [facility] Comment on above: Performed By: #### A 1C, ADIFF, GFR, LIPID, [id number], ANEU, 948690, CBC, 620981, CMP, TSH #### [address] [address] #### LH, FSH, PROL, E2 #### [address] [address] A1Con 06-06-2025 Glucose [Mass/Vol] 111 mg/dL Normal [facility] Comment on above: Result Comment: Alexandra mated Average Glucose calculated by equation ((28.7xA1C)-46.7) Estimated average glucose (eAG) is a calculated value from Hemoglobin A1C and is customer field representative of the average blood glucose level in the last 2-3 month period. Normal range: less than 114 mg/dL Performed By: #### A 1C, ADIFF, GFR, LIPID, [id number], ANEU, 482484, CBC, 858442, CMP, TSH #### [place] [address] #### LH, FSH, PROL, E2 #### [place] [address] HbA1c (Bld) [Mass fraction] 5.5 % Normal 4.3-6.4 [facility] Comment on above: Performed By: #### A 1C, ADIFF, GFR, LIPID, [id number], ANEU, 362997, CBC, 426212, CMP, TSH #### [place] [address] #### LH, FSH, PROL, E2 #### [place] [id number] CBCon 06-06-2025 Erythrocyte distribution width (RBC) [Ratio] 13.0 % Normal 11.5-15.5 [facility] Comment on above: Performed By: #### A 1C, ADIFF, GFR, LIPID, [id number], ANEU, 286744, CBC, 660239, CMP, TSH #### [address] [address] #### LH, FSH, PROL, E2 #### [place] [address] Hematocrit (Bld) [Volume fraction] 46.7 % Normal 40.0-52.0 [facility] Comment on above: Performed By: #### A 1C, ADIFF, GFR, LIPID, [id number], ANEU, 002348, CBC, 8190926, CMP, TSH #### [place] [address] #### LH, FSH, PROL, E2 #### [place] [address] Hgb 16.1 G/dL Normal 13.0-17.5 [facility] Comment on above: Performed By: #### A 1C, ADIFF, GFR, LIPID, [id number], ANEU, 412250, CBC, 8190926, CMP, TSH #### [place] [address] #### LH, FSH, PROL, E2 #### [place] [address] MCH (RBC) [Entitic mass] 29.7 pg Normal 27.0-33.0 [facility] Comment on above: Performed By: #### A 1C, ADIFF, GFR, LIPID, [id number], ANEU, 054300, CBC, 8190926, CMP, TSH #### [place] [address] #### LH, FSH, PROL, E2 #### [place] [address] MCHC 34.4 G/dL Normal 32.0-36.0 [facility] Comment on above: Performed By: #### A 1C, ADIFF, GFR, LIPID, [id number], ANEU, 608287, CBC, 8190926, CMP, TSH #### [place] [address] #### LH, FSH, PROL, E2 #### [place] [address] MCV (RBC) [Entitic vol] 86.3 fL Normal 81.0-100.0 [facility] Comment on above: Performed By: #### A 1C, ADIFF, GFR, LIPID, [id number], ANEU, 964858, CBC, 8190926, CMP, TSH #### [place] [address] #### LH, FSH, PROL, E2 #### [address] [address] Platelet 158 10 3/mcL Normal 150-450 [facility] Comment on above: Performed By: #### A 1C, ADIFF, GFR, LIPID, [id number], ANEU, 833388, CBC, 8190926, CMP, TSH #### [address] [address] #### LH, FSH, PROL, E2 #### [place] [address] Platelet mean volume (Bld) [Entitic vol] 9.6 fL Normal 6.4-10.5 [facility] Comment on above: Performed By: #### A 1C, ADIFF, GFR, LIPID, [id number], ANEU, 677760, CBC, 8190926, CMP, TSH #### [address] [address] #### LH, FSH, PROL, E2 #### [place] [address] RBC 5.42 10 6/mcL Normal 4.50-6.00 [facility] Comment on above: Performed By: #### A 1C, ADIFF, GFR, LIPID, [id number], ANEU, 261447, CBC, 8190926, CMP, TSH #### [address] [address] #### LH, FSH, PROL, E2 #### [place] [address] WBC 4.8 10 3/mcL Normal 4.5-10.8 [facility] Comment on above: Performed By: #### A 1C, ADIFF, GFR, LIPID, [id number], ANEU, 756785, CBC, 8190926, CMP, TSH #### [address] [address] #### LH, FSH, PROL, E2 #### [place] [address] CMPon 06-06-2025 Albumin Level 4.2 G/dL Normal 3.5-5.0 [facility] Comment on above: Performed By: #### A 1C, ADIFF, GFR, LIPID, [id number], ANEU, 976229, CBC, 266240, CMP, TSH #### [address] [address] #### LH, FSH, PROL, E2 #### [address] [address] Albumin/Globulin [Mass ratio] 1.4 {ratio} Normal 1.1-2.5 [facility] Comment on above: Performed By: #### A 1C, ADIFF, GFR, LIPID, [id number], ANEU, 405127, CBC, 026278, CMP, TSH #### [address] [address] #### LH, FSH, PROL, E2 #### [address] [address] ALP [Catalytic activity/Vol] 65 U/L Normal 40-135 [facility] Comment on above: Performed By: #### A 1C, ADIFF, GFR, LIPID, [id number], ANEU, 326099, CBC, 537102, CMP, TSH #### [address] [address] #### LH, FSH, PROL, E2 #### [address] [address] ALT [Catalytic activity/Vol] 32 U/L Normal 16-63 [facility] Comment on above: Performed By: #### A 1C, ADIFF, GFR, LIPID, [id number], ANEU, 947150, CBC, 312919, CMP, TSH #### [address] [address] #### LH, FSH, PROL, E2 #### [address] [address] AST [Catalytic activity/Vol] 23 U/L Normal 10-40 [facility] Comment on above: Performed By: #### A 1C, ADIFF, GFR, LIPID, [id number], ANEU, 509593, CBC, 076611, CMP, TSH #### [place] [address] #### LH, FSH, PROL, E2 #### [address] [address] Bili Total 0.9 mg/dL Normal 0.2-1.0 [facility] Comment on above: Result Comment: Use of this assay is not recommended for patients undergoing treatment with eltrombopag due to the potential for falsely elevated results. Performed By: #### A 1C, ADIFF, GFR, LIPID, [id number], ANEU, 241157, CBC, 607231, CMP, TSH #### [place] [address] #### LH, FSH, PROL, E2 #### [place] [address] BUN/Creatinine Ratio 17 ratio Normal 7-27 [facility] Comment on above: Performed By: #### A 1C, ADIFF, GFR, LIPID, [id number], ANEU, 875070, CBC, 8190926, CMP, TSH #### [place] [address] #### LH, FSH, PROL, E2 #### [address] [address] Calcium [Mass/Vol] 9.5 mg/dL Normal 8.4-10.2 [facility] Comment on above: Performed By: #### A 1C, ADIFF, GFR, LIPID, [id number], ANEU, 240955, CBC, 8190926, CMP, TSH #### [place] [address] #### LH, FSH, PROL, E2 #### [address] [address] Chloride [Moles/Vol] 103 mmol/L Normal 98-107 [facility] Comment on above: Performed By: #### A 1C, ADIFF, GFR, LIPID, [id number], ANEU, 015953, CBC, 974037, CMP, TSH #### [place] [address] #### LH, FSH, PROL, E2 #### [address] [address] CO2 [Moles/Vol] 29 mmol/L Normal 22-29 [facility] Comment on above: Performed By: #### A 1C, ADIFF, GFR, LIPID, [id number], ANEU, 839582, CBC, 840955, CMP, TSH #### [address] [address] #### LH, FSH, PROL, E2 #### [address] [address] Creatinine [Mass/Vol] 1.10 mg/dL Normal 0.67-1.17 [facility] Comment on above: Performed By: #### A 1C, ADIFF, GFR, LIPID, [id number], ANEU, 655205, CBC, 8190926, CMP, TSH #### [address] [address] #### LH, FSH, PROL, E2 #### [address] [address] Electrolyte Balance 8.0 mEq/L Normal 4.0-15.0 [facility] Comment on above: Performed By: #### A 1C, ADIFF, GFR, LIPID, [id number], ANEU, 388939, CBC, 8190926, CMP, TSH #### [address] [address] #### LH, FSH, PROL, E2 #### [address] [address] Globulin 3.1 G/dL Normal 2.7-4.4 [facility] Comment on above: Performed By: #### A 1C, ADIFF, GFR, LIPID, [id number], ANEU, 887141, CBC, 8190926, CMP, TSH #### [address] [address] #### LH, FSH, PROL, E2 #### [address] [address] Glucose [Mass/Vol] 86 mg/dL Normal 70-105 [facility] Comment on above: Performed By: #### A 1C, ADIFF, GFR, LIPID, [id number], ANEU, 093811, CBC, 759148, CMP, TSH #### [address] [address] #### LH, FSH, PROL, E2 #### [address] [address] Potassium [Moles/Vol] 4.2 mmol/L Normal 3.5-5.1 [facility] Comment on above: Performed By: #### A 1C, ADIFF, GFR, LIPID, [id number], ANEU, 583023, CBC, 022206, CMP, TSH #### [address] [address] #### LH, FSH, PROL, E2 #### [address] [address] Sodium [Moles/Vol] 140 mmol/L Normal 136-145 [facility] Comment on above: Performed By: #### A 1C, ADIFF, GFR, LIPID, [id number], ANEU, 633052, CBC, 781843, CMP, TSH #### [address] [address] #### LH, FSH, PROL, E2 #### [address] [address] Total Protein 7.3 G/dL Normal 6.4-8.2 [facility] Comment on above: Performed By: #### A 1C, ADIFF, GFR, LIPID, [id number], ANEU, 223949, CBC, 234139, CMP, TSH #### [address] [address] #### LH, FSH, PROL, E2 #### [address] [address] Urea nitrogen [Mass/Vol] 19 mg/dL High 7-18 [facility] Comment on above: Performed By: #### A 1C, ADIFF, GFR, LIPID, [id number], ANEU, 781687, CBC, 487449, CMP, TSH #### [address] [address] #### LH, FSH, PROL, E2 #### [place] [id number] E2on 06-06-2025 Estradiol Level 23.08 pg/mL Normal 0.00-39.80 [facility] Comment on above: Result Comment: Adult Female E2 Reference Ranges: Follicular phase 19.5 - 144.2 pg/mL Midcycle 63.9 - 356.7 pg/mL Luteal phase 55.8 - 214.2 pg/mL Post menopausal 0 - 33.2 pg/mL Performed By: #### A 1C, ADIFF, GFR, LIPID, [id number], ANEU, 476664, CBC, 264434, CMP, TSH #### [place] [address] #### LH, FSH, PROL, E2 #### [place] [address] FSHon 06-06-2025 FSH 0.4 mIU/mL Low 1.4-18.1 [facility] Comment on above: Result Comment: Adul t Female FSH Reference Ranges (08/14/99): Follicular phase 2.5 - 10.2 mIU/mL Midcycle phase 3.4 - 33.4 mIU/mL Luteal phase 1.5 - 9.1 mIU/mL Post menopausal 23.0 -116.3 mIU/mL Adult Male: 1.4 - 18.1 mIU/mL Performed By: #### A 1C, ADIFF, GFR, LIPID, [id number], ANEU, 925862, CBC, 466288, CMP, TSH #### [place] [id number] #### LH, FSH, PROL, E2 #### [place] [id number] LABORATORYOrdered By: LABCOR P CONTRIBUTOR_SYSTEM on 06-06-2025 [...] any other population of men. Performed At: [address] [id number] Jagdish Zabala PhD Ph:[phone] Free Testost Direct (LC) 3.1 pg/mL Low 7.2-24.0 [facility] Comment on above: Result Comment: Perf ormed At: [address] [id number] Brian Omalley MD Ph:[phone] Performed At: [address] [id number] Jagdish Zabala PhD Ph:[phone] PSA (LC) 2.8 ng/mL Invalid Interpretation Code 0.0-4.0 [facility] Comment on above: Result Comment: Roch e ECLIA methodology. According to the [employer], Serum PSA should decrease and [...] on above: Result Comment: Perf ormed At: [address] [id number] Jagdish Zabala PhD Ph:[phone] Sex Horm Bind Glob (LC) 39.5 nmol/L Invalid Interpretation Code 19.3-76.4 [facility] Comment on above: Result Comment: Perf ormed At: [facility] [address] [place], [place] [id number] Jagdish Zabala PhD Ph:[phone] Testosterone Lvl (LC) 285 ng/dL Invalid Interpretation Code 264-358 [facility] Comment on above: Result Comment: Adul t male reference interval is based on a population of healthy nonobese males (BMI <30) between 19 and 39 years old. Donovan et.al. JCEM 2017,102;5781-9602. PMID: [id number]. LABORATORYOrdered By: SYSTEM SYSTEM on 06-06-2025 Albumin [...] calculated value from Hemoglobin A1C and is customer field representative of the average blood glucose level [...] risk LHon 06-06-2025 LH <0.1 Low 1.5-9.3 [facility] Comment on above: Result Comment: No te - New Reference Range in effect 20Adult Female LH Reference Ranges: Follicular phase 1.9 - 12.5 mIU/mL Midcycle phase 8.7 - 76.3 mIU/mL Luteal phase 0.5 - 16.9 mIU/mL Post menopausal 5.0 - 55.2 mIU/mL Performed By: #### A 1C, ADIFF, GFR, LIPID, [id number], ANEU, 130844, CBC, 967345, CMP, TSH #### [address] [address] #### LH, FSH, PROL, E2 #### [address] [address] LIPIDon 06-06-2025 Cholesterol [Mass/Vol] 210 mg/dL High 0-200 [facility] Comment on above: Result Comment: Chol esterol Reference Interval: Less than 200 Desirable 200-239 Borderline high risk 240 and above High risk Performed By: #### A 1C, ADIFF, GFR, LIPID, [id number], ANEU, 591492, CBC, 8190926, CMP, TSH #### [place] [address] #### LH, FSH, PROL, E2 #### [address] [address] Cholesterol in HDL [Mass/Vol] 42 mg/dL Normal 40-60 [facility] Comment on above: Performed By: #### A 1C, ADIFF, GFR, LIPID, [id number], ANEU, 982948, CBC, 693635, CMP, TSH #### [address] [address] #### LH, FSH, PROL, E2 #### [address] [address] Cholesterol in LDL [Mass/Vol] 151 mg/dL High 0-130 [facility] Comment on above: Performed By: #### A 1C, ADIFF, GFR, LIPID, [id number], ANEU, 060618, CBC, 068478, CMP, TSH #### [address] [address] #### LH, FSH, PROL, E2 #### [address] [address] Triglyceride [Mass/Vol] 85 mg/dL Normal 0-150 [facility] Comment on above: Result Comment: Trig lyceride Reference Interval: Less than 150 Normal 150-199 Borderline high risk 200-499 High risk 500 or higher Very high risk Performed By: #### A 1C, ADIFF, GFR, LIPID, [id number], ANEU, 893472, CBC, 237071, CMP, TSH #### [address] [address] #### LH, FSH, PROL, E2 #### [address] [address] PROLon 06-06-2025 Prolactin 4.6 ng/mL Normal 2.0-18.0 [facility] Comment on above: Performed By: #### A 1C, ADIFF, GFR, LIPID, [id number], ANEU, 281066, CBC, 037471, CMP, TSH #### [address] [address] #### LH, FSH, PROL, E2 #### [address] [address] TSHon 06-06-2025 TSH Qn 1.08 m[IU]/L Normal 0.36-3.74 [facility] Comment on above: Performed By: #### A 1C, ADIFF, GFR, LIPID, [id number], ANEU, [id number], CBC, 406279, CMP, TSH #### [address] [address] #### LH, FSH, PROL, E2 #### [address] [address] TFTESTon 12-14-2024 Free Testost Direct 6.7 pg/mL Low 7.2-24.0 [facility] Comment on above: Result Comment: Perf ormed At: [facility] [address] [id number] Brian Omalley MD Ph:[phone] Performed At: [facility] [address] [id number] Jagdish Zabala PhD Ph:[phone] Performed By: #### A 1C, ADIFF, GFR, LIPID, [id number], ANEU, [id number], CBC, [id number], CMP, TSH #### [place] [address] #### LH, FSH, PROL, E2 #### [place] [address] Testosterone Lvl 560 ng/dL Normal 264-916 [facility] Comment on above: Result Comment: Adul t male reference interval is based on a population of healthy nonobese males (BMI <30) between 19 and 39 years old. johnathon Man.al. JCEM 2017,102;1503-6073. PMID: [id number]. Performed By: #### A 1C, ADIFF, GFR, LIPID, [id number], ANEU, [id number], CBC, [id number], CMP, TSH #### [place] [address] #### LH, FSH, PROL, E2 #### [place] [address] [id number] 12-09-2024 Sex Horm Bind Glob 42.2 nmol/L Normal 19.3-76.4 [facility] Comment on above: Result Comment: Perf ormed At: [facility] [address] [id number] Jagdish Zabala PhD Ph:[phone] Performed By: #### A 1C, ADIFF, GFR, LIPID, [id number], ANEU, [id number], CBC, [id number], CMP, TSH #### [place] [address] #### LH, FSH, PROL, E2 #### [place] [address] .GFRon 12-08-2024 Estimated Glomerular Filtration Rate 74 ml/min/1.73sqm Normal [facility] Comment on above: Result Comment: Stages of [...] By: #### A 1C, ADIFF, GFR, LIPID, [id number], ANEU, [id number], CBC, [id number], CMP, TSH #### [place] [address] #### LH, FSH, PROL, E2 #### [address] [address] CMPon 12-08-2024 Albumin Level 4.7 G/dL Normal 3.5-5.0 [facility] Comment on above: Performed By: #### A 1C, ADIFF, GFR, LIPID, [id number], ANEU, [id number], CBC, [id number], CMP, TSH #### [place] [address] #### LH, FSH, PROL, E2 #### [address] [address] Albumin/Globulin [Mass ratio] 1.7 {ratio} Normal 1.1-2.5 [facility] Comment on above: Performed By: #### A 1C, ADIFF, GFR, LIPID, [id number], ANEU, [id number], CBC, [id number], CMP, TSH #### [place] [address] #### LH, FSH, PROL, E2 #### [address] [address] ALP [Catalytic activity/Vol] 65 U/L Normal 40-135 [facility] Comment on above: Performed By: #### A 1C, ADIFF, GFR, LIPID, [id number], ANEU, [id number], CBC, 8190926, CMP, TSH #### [place] [address] #### LH, FSH, PROL, E2 #### [address] [address] ALT [Catalytic activity/Vol] 42 U/L Normal 16-63 [facility] Comment on above: Performed By: #### A 1C, ADIFF, GFR, LIPID, [id number], ANEU, [id number], CBC, 8190926, CMP, TSH #### [address] [address] #### LH, FSH, PROL, E2 #### [address] [address] AST [Catalytic activity/Vol] 27 U/L Normal 10-40 [facility] Comment on above: Performed By: #### A 1C, ADIFF, GFR, LIPID, [id number], ANEU, [id number], CBC, 8190926, CMP, TSH #### [address] [address] #### LH, FSH, PROL, E2 #### [place] [address] Bili Total 0.8 mg/dL Normal 0.2-1.0 [facility] Comment on above: Result Comment: Use of this assay is not recommended for patients undergoing treatment with eltrombopag due to the potential for falsely elevated results. Performed By: #### A 1C, ADIFF, GFR, LIPID, [id number], ANEU, [id number], CBC, 8190926, CMP, TSH #### [place] [address] #### LH, FSH, PROL, E2 #### [address] [address] BUN/Creatinine Ratio 18 ratio Normal 7-27 [facility] Comment on above: Performed By: #### A 1C, ADIFF, GFR, LIPID, [id number], ANEU, [id number], CBC, 8190926, CMP, TSH #### [address] [address] #### LH, FSH, PROL, E2 #### [place] [address] Calcium [Mass/Vol] 9.9 mg/dL Normal 8.4-10.2 [facility] Comment on above: Performed By: #### A 1C, ADIFF, GFR, LIPID, [id number], ANEU, 324004, CBC, 8190926, CMP, TSH #### [address] [address] #### LH, FSH, PROL, E2 #### [address] [address] Chloride [Moles/Vol] 104 mmol/L Normal 98-107 [facility] Comment on above: Performed By: #### A 1C, ADIFF, GFR, LIPID, [id number], ANEU, 571589, CBC, 8190926, CMP, TSH #### [address] [address] #### LH, FSH, PROL, E2 #### [address] [address] CO2 [Moles/Vol] 29 mmol/L Normal 22-29 [facility] Comment on above: Performed By: #### A 1C, ADIFF, GFR, LIPID, [id number], ANEU, 731879, CBC, 8190926, CMP, TSH #### [address] [address] #### LH, FSH, PROL, E2 #### [address] [address] Creatinine [Mass/Vol] 1.20 mg/dL Normal 0.70-1.30 [facility] Comment on above: Result Comment: Test ing performed on Siemens Dimension EXL analyzer using a modified kinetic Bhargavi technique. Performed By: #### A 1C, ADIFF, GFR, LIPID, [id number], ANEU, 420794, CBC, 862119, CMP, TSH #### [address] [address] #### LH, FSH, PROL, E2 #### [address] [address] Electrolyte Balance 7.0 mEq/L Normal 4.0-15.0 [facility] Comment on above: Performed By: #### A 1C, ADIFF, GFR, LIPID, [id number], ANEU, [id number], CBC, 581447, CMP, TSH #### [address] [address] #### LH, FSH, PROL, E2 #### [address] [address] Globulin 2.8 G/dL Normal 1.5-3.8 [facility] Comment on above: Performed By: #### A 1C, ADIFF, GFR, LIPID, [id number], ANEU, 936863, CBC, 8190926, CMP, TSH #### [place] [address] #### LH, FSH, PROL, E2 #### [address] [address] Glucose [Mass/Vol] 84 mg/dL Normal 70-105 [facility] Comment on above: Performed By: #### A 1C, ADIFF, GFR, LIPID, [id number], ANEU, [id number], CBC, 8190926, CMP, TSH #### [address] [address] #### LH, FSH, PROL, E2 #### [address] [address] Potassium [Moles/Vol] 4.6 mmol/L Normal 3.5-5.1 [facility] Comment on above: Performed By: #### A 1C, ADIFF, GFR, LIPID, [id number], ANEU, 164017, CBC, 8190926, CMP, TSH #### [address] [address] #### LH, FSH, PROL, E2 #### [address] [address] Sodium [Moles/Vol] 140 mmol/L Normal 136-145 [facility] Comment on above: Performed By: #### A 1C, ADIFF, GFR, LIPID, [id number], ANEU, 725955, CBC, 838084, CMP, TSH #### [address] [address] #### LH, FSH, PROL, E2 #### [address] [address] Total Protein 7.5 G/dL Normal 6.4-8.2 [facility] Comment on above: Performed By: #### A 1C, ADIFF, GFR, LIPID, [id number], ANEU, 920739, CBC, 039583, CMP, TSH #### [address] [address] #### LH, FSH, PROL, E2 #### [place] [address] Urea nitrogen [Mass/Vol] 21 mg/dL High 7-18 [facility] Comment on above: Performed By: #### A 1C, ADIFF, GFR, LIPID, [id number], ANEU, 458055, CBC, 121572, CMP, TSH #### [place] [address] #### LH, FSH, PROL, E2 #### [place] [address] LIPIDon 12-08-2024 Cholesterol [Mass/Vol] 172 mg/dL Normal 0-200 [facility] Comment on above: Result Comment: Chol esterol Reference Interval: Less than 200 Desirable 200-239 Borderline high risk 240 and above High risk Performed By: #### A 1C, ADIFF, GFR, LIPID, [id number], ANEU, 684981, CBC, 8190926, CMP, TSH #### [place] [address] #### LH, FSH, PROL, E2 #### [address] [address] Cholesterol in HDL [Mass/Vol] 54 mg/dL Normal 40-60 [facility] Comment on above: Performed By: #### A 1C, ADIFF, GFR, LIPID, [id number], ANEU, 874050, CBC, 635189, CMP, TSH #### [address] [address] #### LH, FSH, PROL, E2 #### [facility] [address] [place], [place] [address] Cholesterol in LDL [Mass/Vol] 105 mg/dL Normal 0-130 [facility] Comment on above: Performed By: #### A 1C, ADIFF, GFR, LIPID, [id number], ANEU, 571154, CBC, 210936, CMP, TSH #### [address] [address] #### LH, FSH, PROL, E2 #### [facility] [address] [place] [address] Triglyceride [Mass/Vol] 67 mg/dL Normal 0-150 [facility] Comment on above: Result Comment: Trig lyceride Reference Interval: Less than 150 Normal 150-199 Borderline high risk 200-499 High risk 500 or higher Very high risk Performed By: #### A 1C, ADIFF, GFR, LIPID, [id number], ANEU, 378646, CBC, 900138, CMP, TSH #### [address] [address] #### LH, FSH, PROL, E2 #### [address] [address] LABORATORYOrdered By: SYSTEM SYSTEM on 06-02-2024 Albumin [...] Result Comment: Perf ormed At: [facility] [address] [id number] Jagdish Zabala PhD Ph:[phone] .GFRon 12-10-2023 GFR Non- 58 ml/min/1.73sqm Normal [facility] ([place]) Comment on above: Result Comment: GFR Population [...] #### L IPID, GFR, CMP, PSA #### [address] [address] GFR 70 ml/min/1.73sqm Normal [facility] ([place]) Comment on above: Result Comment: GFR Population [...] #### L IPID, GFR, CMP, PSA #### [address] [address] CMPon 12-10-2023 Albumin Level 4.4 G/dL Normal 3.5-5.0 [facility] ([place]) Comment on above: Performed By: #### L IPID, GFR, CMP, PSA #### [address] [address] Albumin/Globulin [Mass ratio] 1.6 {ratio} Normal 1.1-2.5 [facility] ([place]) Comment on above: Performed By: #### L IPID, GFR, CMP, PSA #### [place] [address] [place], [place] [address] ALP [Catalytic activity/Vol] 61 U/L Normal 40-135 [facility] ([place]) Comment on above: Performed By: #### L IPID, GFR, CMP, PSA #### [address] [address] ALT [Catalytic activity/Vol] 39 U/L Normal 16-63 [facility] ([place]) Comment on above: Performed By: #### L IPID, GFR, CMP, PSA #### [address] [address] AST [Catalytic activity/Vol] 22 U/L Normal 10-40 [facility] ([place]) Comment on above: Performed By: #### L IPID, GFR, CMP, PSA #### [address] [address] Bili Total 0.8 mg/dL Normal 0.2-1.0 [facility] ([place]) Comment on above: Result Comment: Use of this assay is not recommended for patients undergoing treatment with eltrombopag due to the potential for falsely elevated results. Performed By: #### L IPID, GFR, CMP, PSA #### [address] [address] BUN/Creatinine Ratio 17 ratio Normal 7-27 [facility] ([place]) Comment on above: Performed By: #### L IPID, GFR, CMP, PSA #### [address] [address] Calcium [Mass/Vol] 9.6 mg/dL Normal 8.4-10.2 [facility] ([place]) Comment on above: Performed By: #### L IPID, GFR, CMP, PSA #### [address] [address] Chloride [Moles/Vol] 104 mmol/L Normal 98-107 [facility] ([place]) Comment on above: Performed By: #### L IPID, GFR, CMP, PSA #### [address] [address] CO2 [Moles/Vol] 28 mmol/L Normal 22-29 [facility] ([place]) Comment on above: Performed By: #### L IPID, GFR, CMP, PSA #### [address] [address] Creatinine [Mass/Vol] 1.32 mg/dL High 0.70-1.30 [facility] ([place]) Comment on above: Performed By: #### L IPID, GFR, CMP, PSA #### [address] [address] Electrolyte Balance 7.0 mEq/L Normal 4.0-15.0 [facility] ([place]) Comment on above: Performed By: #### L IPID, GFR, CMP, PSA #### [address] [address] Globulin 2.8 G/dL Normal [facility] ([place]) Comment on above: Performed By: #### L IPID, GFR, CMP, PSA #### [address] [address] Glucose [Mass/Vol] 89 mg/dL Normal 70-105 [facility] ([place]) Comment on above: Performed By: #### L IPID, GFR, CMP, PSA #### [address] [address] Potassium [Moles/Vol] 4.3 mmol/L Normal 3.5-5.1 [facility] ([place]) Comment on above: Performed By: #### L IPID, GFR, CMP, PSA #### [address] [address] Sodium [Moles/Vol] 139 mmol/L Normal 136-145 [facility] ([place]) Comment on above: Performed By: #### L IPID, GFR, CMP, PSA #### [address] [address] Total Protein 7.2 G/dL Normal 6.4-8.2 [facility] ([place]) Comment on above: Performed By: #### L IPID, GFR, CMP, PSA #### [address] [address] Urea nitrogen [Mass/Vol] 22 mg/dL High 7-18 [facility] ([place]) Comment on above: Performed By: #### L IPID, GFR, CMP, PSA #### [place] [address] [place], [place] [address] LABORATORYOrdered By: SYSTEM SYSTEM on 12-10-2023 Albumin [...] 12-10-2023 Cholesterol [Mass/Vol] 158 mg/dL Normal 0-200 [facility] ([place]) Comment on above: Result Comment: Chol esterol Reference Interval: Less than 200 Desirable 200-239 Borderline high risk 240 and above High risk Performed By: #### L IPID, GFR, CMP, PSA #### [address] [address] Cholesterol in HDL [Mass/Vol] 48 mg/dL Normal 40-60 [facility] ([place]) Comment on above: Performed By: #### L IPID, GFR, CMP, PSA #### [address] [address] Cholesterol in LDL [Mass/Vol] 97 mg/dL Normal 0-130 [facility] ([place]) Comment on above: Performed By: #### L IPID, GFR, CMP, PSA #### [address] [address] Triglyceride [Mass/Vol] 64 mg/dL Normal 0-150 [facility] ([place]) Comment on above: Result Comment: Trig lyceride Reference Interval: Less than 150 Normal 150-199 Borderline high risk 200-499 High risk 500 or higher Very high risk Performed By: #### L IPID, GFR, CMP, PSA #### [address] [address] PSAon 12-10-2023 Prostate Specific Antigen 2.22 ng/mL Normal 0.00-4.00 [facility] ([place]) Comment on above: Performed By: #### L IPID, GFR, CMP, PSA #### [address] [address] .GFRon 06-11-2023 GFR 81 ml/min/1.73sqm Normal [facility] ([place]) Comment on above: Result Comment: GFR Population [...] Performed By: #### G FR, CMP #### [address] [address] GFR Non- 67 ml/min/1.73sqm Normal [facility] ([place]) Comment on above: Result Comment: GFR Population [...] Performed By: #### G FR, CMP #### [address] [address] CMPon 06-11-2023 Albumin Level 4.3 G/dL Normal 3.5-5.0 [facility] ([place]) Comment on above: Performed By: #### G FR, CMP #### [address] [place] [address] Albumin/Globulin [Mass ratio] 1.7 {ratio} Normal 1.1-2.5 [facility] ([place]) Comment on above: Performed By: #### Lyly HERNANDES, CMP #### [address] [address] ALP [Catalytic activity/Vol] 60 U/L Normal 40-135 [facility] ([place]) Comment on above: Performed By: #### Lyly HERNANDES, CMP #### [address] [address] ALT [Catalytic activity/Vol] 43 U/L Normal 16-63 [facility] ([place]) Comment on above: Performed By: #### Lyly HERNANDES, CMP #### [address] [address] AST [Catalytic activity/Vol] 24 U/L Normal 10-40 [facility] ([place]) Comment on above: Performed By: #### Lyly HERNANDES, CMP #### [address] [address] Bili Total 0.7 mg/dL Normal 0.2-1.0 [facility] ([place]) Comment on above: Result Comment: Use of this assay is not recommended for patients undergoing treatment with eltrombopag due to the potential for falsely elevated results. Performed By: #### Lyly HERNANDES, CMP #### [address] [address] BUN/Creatinine Ratio 17 ratio Normal 7-27 [facility] ([place]) Comment on above: Performed By: #### Lyly HERNANDES, CMP #### [address] [address] Calcium [Mass/Vol] 9.3 mg/dL Normal 8.4-10.2 [facility] ([place]) Comment on above: Performed By: #### Lyly HERNANDES, CMP #### [address] [address] Chloride [Moles/Vol] 102 mmol/L Normal 98-107 [facility] ([place]) Comment on above: Performed By: #### Lyly HERNANDES, CMP #### [address] [address] CO2 [Moles/Vol] 30 mmol/L High 22-29 [facility] ([place]) Comment on above: Performed By: #### G , CMP #### [address] [address] Creatinine [Mass/Vol] 1.17 mg/dL Normal 0.70-1.30 [facility] ([place]) Comment on above: Performed By: #### Lyly HERNANDES, CMP #### [address] [address] Electrolyte Balance 5.0 mEq/L Normal 4.0-15.0 [facility] ([place]) Comment on above: Performed By: #### Lyly HERNANDES, CMP #### [address] [address] Globulin 2.6 G/dL Normal [facility] ([place]) Comment on above: Performed By: #### Lyly HERNANDES, CMP #### [address] [address] Glucose [Mass/Vol] 91 mg/dL Normal 70-105 [facility] ([place]) Comment on above: Performed By: #### Lyly HERNANDES, CMP #### [address] [address] Potassium [Moles/Vol] 4.5 mmol/L Normal 3.5-5.1 [facility] ([place]) Comment on above: Performed By: #### Lyly HERNANDES, CMP #### [address] [address] Sodium [Moles/Vol] 137 mmol/L Normal 136-145 [facility] ([place]) Comment on above: Performed By: #### Lyly HERNANDES, CMP #### [address] [address] Total Protein 6.9 G/dL Normal 6.4-8.2 [facility] ([place]) Comment on above: Performed By: #### Lyly HERNANDES, CMP #### [address] [address] Urea nitrogen [Mass/Vol] 20 mg/dL High 7-18 [facility] ([place]) Comment on above: Performed By: #### G , [facility] #### [address] [address] LABORATORYOrdered By: SYSTEM SYSTEM on 06-11-2023 Albumin [...] 06-11-2023 Cholesterol [Mass/Vol] 147 mg/dL Normal 0-200 [facility] ([place]) Comment on above: Result Comment: Chol esterol Reference Interval: Less than 200 Desirable 200-239 Borderline high risk 240 and above High risk Performed By: #### L IPID #### [address] [address] Cholesterol in HDL [Mass/Vol] 50 mg/dL Normal 40-60 [facility] ([place]) Comment on above: Performed By: #### L IPID #### [address] [address] Cholesterol in LDL [Mass/Vol] 88 mg/dL Normal 0-130 [facility] ([place]) Comment on above: Performed By: #### L IPID #### [address] [address] Triglyceride [Mass/Vol] 43 mg/dL Normal 0-150 [facility] ([place]) Comment on above: Result Comment: Trig lyceride Reference Interval: Less than 150 Normal 150-199 Borderline high risk 200-499 High risk 500 or higher Very high risk Performed By: #### L IPID #### [address] [address] LABORATORYOrdered By: SYSTEM SYSTEM on 12-04-2022 Albumin [...] on above: Result Comment: Perf ormed By: [facility] [address] [place] [address] [employer] Field Supervisor: Reilly Gonzales III, M.D. [facility]#: [id number] LABORATORYOrdered By: Kahlil Hernandez on 05-29-2022 Albumin [...] Interpretation Code AO Chemistry S CNNURSEon 07-16-2019 [facility] Nurse Visit (FAMPWS) -------- JETT PICKERING ([id number]) 1975 M Date Time Provider Department 07/16/19 10:10 AM PR NURSE BLANCA During your visit today, we recorded the following information about you: Referring Provider: SELF [200] Allergies As of Date: 07/16/2019 (No Known Allergies) Date Reviewed: 03/05/2013 Reviewed by: Doreen Rhodes Lpn - Fully Assessed Reason for Visit: Imm/Inj [58] Cmt: Flu Vaccine Primary Visit Diagnosis:Need for vaccination [Z23] Order(s):INFLUENZA VACCINE QUADRIVALENT AGE 3 YRS PLUS + IM [[id number]] Order #: [id number] Prescriptions as of 07/16/2019 Sig: EZETIMIBE 10 MG-SIMVASTATIN 2* Take 1 tablet by mouth daily * Problem List As Of Date: 07/16/2019 (None) Encounter Status:Closed by DOUGLAS MIRZA CMA on 07/16/19 [facility] Encounters Encounter Date Encounter Type Care Provider Facility Start: 07-11-2025 ambulatory Gab Carlos INVESTMENT PROFESSIONAL Facility:[facility] Start: 06-06-2025 End: 06-10-2025 ambulatory GAB CARLOS ATHLETIC INSTRUCTOR - [employer] Facility:[facility] Start: 06-06-2025 End: 06-10-2025 Encounter for general adult medical examination without abnormal findings GAB CARLOS ATHLETIC INSTRUCTOR - [employer] Facility:[facility] Start: 06-06-2025 End: 06-10-2025 Outreach Lab GAB CARLOS ATHLETIC INSTRUCTOR - [employer] [facility] Start: 12-08-2024 End: 12-12-2024 ambulatory GAB CARLOS ATHLETIC INSTRUCTOR - [employer] Facility:[facility] Start: 06-02-2024 End: 06-06-2024 Outreach Lab GAB CARLOS ATHLETIC INSTRUCTOR - [employer] [facility] Start: 12-10-2023 End: 12-15-2023 ambulatory GAB CARLOS ATHLETIC INSTRUCTOR - [employer] Facility:[facility] Start: 12-10-2023 End: 12-14-2023 Outreach Lab GAB CARLOS ATHLETIC INSTRUCTOR - [employer] [facility] Start: 06-11-2023 End: 06-16-2023 ambulatory GAB CARLOS ATHLETIC INSTRUCTOR - [employer] Facility:[facility] Start: 06-11-2023 End: 06-15-2023 Outreach Lab GAB CARLOS ATHLETIC INSTRUCTOR - [employer] [facility] Start: 12-04-2022 End: 12-08-2022 Outreach Lab GAB CARLOS ATHLETIC INSTRUCTOR - [employer] [facility] Start: 05-29-2022 End: 06-02-2022 Outreach Lab GAB CARLOS ATHLETIC INSTRUCTOR - [employer] [facility] Start: 11-14-2021 End: 11-18-2021 Outreach Lab GAB CARLOS ATHLETIC INSTRUCTOR - [employer] [facility] Procedures Date Procedure Procedure Detail Performing Clinician Start: 06-07-2025 PSA screening AGB ESPAÑA ATHLETIC INSTRUCTOR - [employer] Comment on above: Result Comment: Ayah rowe ECLIA methodology. According to the [employer], Serum PSA should decrease and [...] By: #### A 1C, ADIFF, GFR, LIPID, [id number], ANEU, [id number], CBC, 543259, CMP, TSH #### [facility] [address] [place], [place] [address] #### LH, FSH, PROL, E2 #### [place] [address] Total nephrectomy GAB GREENE ATHLETIC INSTRUCTOR - [employer] Immunizations Immunization Date Immunization Notes Care Provider Fa cility 09-05-2021 SARS-CoV-2 (COVID-19 ) mRNA-1273 vaccine GAB CARLOS ATHLETIC INSTRUCTOR - [employer] [facility] Comment on above: Result Comment: 2021: [id number] 01-17-2021 SARS-CoV-2 (COVID-19 ) mRNA-1273 vaccine GAB CARLOS ATHLETIC INSTRUCTOR - [employer] [facility] 12-20-2020 SARS-CoV-2 (COVID-19 ) mRNA-1273 vaccine GAB CARLOS ATHLETIC INSTRUCTOR - [employer] [facility] 07-03-2020 influenza, injectabl e, quadrivalent, preservative free; Translations: [Fluarix PF Quadrivalent ] GAB CARLOS ATHLETIC INSTRUCTOR - [employer] [facility] 07-16-2019 influenza virus vaccine, unspecified formulation GAB CARLOS ATHLETIC INSTRUCTOR - [employer] [facility] 06-27-2017 influenza virus vaccine, unspecified formulation GAB CARLOS ATHLETIC INSTRUCTOR - [employer] [facility] 07-12-2016 influenza virus vaccine, unspecified formulation GAB CARLOS ATHLETIC INSTRUCTOR - [employer] [facility] 08-04-2015 influenza virus vaccine, unspecified formulation GAB CARLOS ATHLETIC INSTRUCTOR - [employer] [facility] Payers Date Payer Category Payer Self-pay 2025 Private Health Insurance [id number] [id number] Unknown [id number] 1975 Unknown [id number] [id number] [id number] 1975 Unknown [id number] [id number] [id number] 1975 Unknown [id number] 1975 Unknown [id number] [id number] [id number] Unknown [id number] [id number] [id number] Social History Date Type Detail Facility Start: 06-25-2020 End: 03-20-2025 Never smoked tobacco (finding) [facility] Sex Assigned At [facility] Start: 12-13-2014 Sex Male (finding) [facility] Evaluation + Plan note Note Date & Type Note Facility Evaluation + Plan note Future Appointments Appointment Date:11/21/2021 10:40:00 AM Scheduled Provider:GAB CARLOS APRN, CNP Location:[facility] Appointment Type:PC OV [facility] Evaluation + Plan note Note Date & Type Note Facility Evaluation + Plan note Future Appointments Appointment Date:06/05/2022 08:00:00 AM Scheduled Provider:GAB CARLOS APRN, CNP Location:[facility] Appointment Type:PC OV Follow Up Diagnostic Tests PendingTestosterone, Free and Total 05/29/22 [facility] Evaluation + Plan note Note Date & Type Note Facility Evaluation + Plan note Future Appointments Appointment Date:12/11/2022 08:00:00 AM Scheduled Provider:GAB CARLOS APRN, CNP Location:[facility] Appointment Type:PC OV Follow Up Diagnostic Tests PendingTestosterone, Free and Total 12/04/22 [facility] Evaluation + Plan note Note Date & Type Note Facility Evaluation + Plan note Future Appointments Appointment Date:06/18/2023 08:00:00 AM Scheduled Provider:GAB CARLOS APRN, CNP Location:[facility] Appointment Type:PC OV Follow Up [facility] Evaluation + Plan note Note Date & Type Note Facility Evaluation + Plan note Future Appointments Appointment Date:12/15/2023 07:20:00 AM Scheduled Provider:GAB CARLOS APRN - AIDEN Location:[facility] Appointment Type:PC OV [facility] Evaluation + Plan note Note Date & Type Note Facility Evaluation + Plan note Future Appointments Appointment Date:06/16/2024 07:00:00 AM Scheduled Provider:GAB CARLOS APRN, CNP Location:[facility] Appointment Type:PC Wellness Annual Diagnostic Tests PendingTestosterone,Free and Total 06/02/24 [facility] Evaluation + Plan note Laboratory Note Date [...] 06/15/25Complete Blood Count 06/15/25Complete Metabolic Panel 06/15/25 [facility] Hospital course Narrative Note Date & Type Note Facility Hospital course Narrative No data available for this section [facility] Hospital Discharge instructions Note Date & Type Note Facility Hospital Discharge instructions No data available for this section [facility] Progress note Note Date & Type Note Facility Progress note No data available for this section [facility] Summary Purpose Family History No Family History [...] section and content) DATE CREATED AUTHOR 07/16/2019 [facility] DATE CREATED AUTHOR AUTHOR'S ORGANIZ ATION 12/15/2023 [facility] ([place]) DATE CREATED AUTHOR AUTHOR'S ORGANIZ ATION 06/11/2025 [facility] DATE CREATED AUTHOR AUTHOR'S ORGANIZ ATION 07/01/2025 [facility] Care Team (unrecognized sect ion and content) Care Team Personnel Name: GAB CARLOS APRN - [employer]IER Position: P4 Advanced Practice Nurse Med Service: Employed Provider Member Role: Primary Care Physician Address: Address: [address] [place] [address] Care Team Related Persons Name: CHRIS PICKERING Patient Care team informatio n (unrecognized section and content) Care Team Personnel Name: GAB CARLOS APRN - RESTAURANT CASHIER Position: P4 Advanced Coffee Break Attendant Member Role: Primary Care Physician Address: Address: [address] [place] [address] Care Team Related Persons Name: CHRIS PICKERING Care Team Personnel Name: GAB CARLOS ATHLETIC INSTRUCTOR - RESTAURANT CASHIER Position: P4 Advanced Coffee Break Attendant Member Role: Primary Care Physician Address: Address: [address] [place] [address] Care Team Related Persons Name: CHRIS PICKERING Care Team Personnel Name: GAB CARLOS ATHLETIC INSTRUCTOR - RESTAURANT CASHIER Position: P4 Advanced Coffee Break Attendant Member Role: Primary Care Physician Address: Address: [address] [place] [address] [place] [address]- [place] Care Team Related Persons Name: LADAN CHRIS Care Team Personnel Name: GAB CARLOS APRN, CNP Position: P4 Advanced Coffee Break Attendant Member Role: Primary Care Physician Address: Address: [address] [place] [id number]- [place] Care Team Related Persons Name: LADAN CHRIS Care Team Personnel Name: GAB CARLOS APRN, CNP Position: P4 Advanced Coffee Break Attendant Member Role: Primary Care Physician Address: [address] [place] [address]- [place] [employer]: Care Team Related Persons Name: [...] BE BASED ON THE PRIMARY CLINICAL RECORDS. [employer] provides no warranty or guarantee of the accuracy or completeness of information in this document.
--- NOTE | 2025-07-11 17:44 | CA.SCORE ---
Calcium Scoring Date of Study:: 07/11/25 Indications Indications: FH/HLD Coronary Calcium Scoring: High-resolution Computed Tomographic imaging of the chest was performed on [07/11/25 ], with particular attention paid to the coronary arteries. Images from the examination were analyzed for the presence and extent of coronary artery calcification , using coronary calcium quantification software. The patient tolerated the procedure well and there were no complications. The results of the coronary calcification analysis are provided below. Findings Coronary Artery Left Main (LM): 0 Left Anterior Descending (LAD): 0 Left Circumflex (LCX): 0 Right Coronary Artery (RCA): 0 Total Agatston Score: 0 Percentile Rankin Calcium Scoring Interpretation: Different methods to categorize the overall amount of coronary plaque. Overall amount CAC SIS Visual of coronary plaque P1 Mild -100 <2 1-2 vessels with mild amount of plaque P2 Moderate 101-300 3-4 1-2 vessels with moderate amount, 3 vessels with mild amount of plaque P3 Severe 301-999 5-7 3 vessels with moderate amount, 1 vessel with severe amount of plaque P4 Extensive >1000 >8 2-3 vessels with severe amount of plaque Conclusion: No atherosclerotic plaque
== END | disposition home or self-care (01) ==
LOC: CT 07:15
PROVIDERS: PCP Nurse Practitioner Family; Referring Provider Nurse Practitioner Family; Visit Provider Nurse Practitioner Family
DX: E78.00 Pure hypercholesterolemia, unspecified (principal)
CPT/HCPCS: 75571; 76380